=== PATIENT | female | born 1955 | race Caucasian/White ===

== ENCOUNTER 2016-11-18 17:39 | Inpatient (IN) | payer BC ==
[~2016-11-18] VITALS: Ht 167.6 cm; Wt 64.5 kg
[2016-11-18] MEDS ORDERED: MORPHINE SULFATE 8 MG/ML INJ ONE (17:45)
[2016-11-18] MEDS ORDERED: ceFAZolin 2 GM PREMIX 50 ML ONE (17:45)
[2016-11-18] MEDS ORDERED: DIPHTH/TETANUS/ACEL PERTUSSIS (BOOSTER) 0.5 ML VIAL/PFS IM ONE ×2 (17:45→18:36)
[2016-11-18] MEDS ORDERED: ADENOSINE IV SOLN 3 MG/ML 2 ML VIAL ONE ×2 (17:49→17:52)
[2016-11-18] MEDS ORDERED: ONDANSETRON HCL 4 MG/2 ML VIAL ONE (18:01)
[2016-11-18 18:09] LABS: I-STAT POTASSIUM 4.2 MMOL/L (3.5-4.9)
[2016-11-18 18:14] LABS: BASOPHIL % 0.4 % (0.0-2.0); EOSINOPHIL # 0.1 TH/MM3 (0-0.4); EOSINOPHIL % 1.9 % (0.0-4.0); HEMATOCRIT 34.5 % (35.0-46.0); HEMO FLAGS DIFF FINAL; LYMPH % 30.9 % (9.0-44.0); LYMPHOCYTE # 1.6 TH/MM3 (1.0-4.8); MEAN CELL VOLUME 98.3 FL (80.0-100.0); MEAN CORPUSCULAR HEMOGLOBIN 33.1 PG (27.0-34.0); MEAN CORPUSCULAR HGB CONC 33.7 % (32.0-36.0); MONO % 10.5 % (0.0-8.0); NEUT % 56.3 % (16.0-70.0); PLATELET COUNT 156 TH/MM3 (150-450); RED BLOOD COUNT 3.51 MIL/MM3 (4.00-5.30); RED CELL DISTRIBUTION WIDTH 12.4 % (11.6-17.2); WHITE BLOOD COUNT 5.3 TH/MM3 (4.0-11.0)
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
[2016-11-18] MEDS ORDERED: IOHEXOL 350 MG/ML 10 ML VIAL (for RAD DIAG) IV ONE (18:21)
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
[2016-11-18 18:28] LABS: APTT (PATIENT) 21.8 SEC (24.3-30.1); PROTHROMBIN TIME - PATIENT 11.4 SEC (9.8-11.6)
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
[2016-11-18] MEDS ORDERED: ceFAZolin 2 GM PREMIX 50 ML IV STA (18:36)
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
[2016-11-18] MEDS ORDERED: ONDANSETRON HCL 4 MG/2 ML VIAL IV PRN (18:45)
[2016-11-18] MEDS ORDERED: SODIUM CHLORIDE 0.9% FLUSH 5 ML FLUSH IV FLUSH PRN ×2 (18:45→22:45)
[2016-11-18] MEDS: LACTULOSE SYRUP 20 GM/30 ML CUP PO SCH (18:45)
[2016-11-18] MEDS ORDERED: CHLORHEXIDINE GLUCONATE 2 % 1 PACK (2 CLOTHS) TOP PRN ×2 (18:45→22:45)
[2016-11-18] MEDS ORDERED: MISCELLANEOUS NURSING INFORMATION XX SCH ×2 (18:45→22:45)
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
[2016-11-18] MEDS: SODIUM CHLOR 0.9% 1000 ML INJ 1,000 ML IV SCH (19:24)
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
--- NOTE | 2016-11-18 19:41 | RADRPT ---
EXAM DATE/TIME: 11/18/2016 19:08 [facility] COMPARISON: No previous studies available for comparison. INDICATIONS : Trauma, right lateral knee pain. RADIATION DOSE: 7.29 CTDIvol (mGy) MEDICAL HISTORY : Non-responsive. SURGICAL HISTORY : Non-responsive. ENCOUNTER: Initial ACUITY: 1 day PAIN SCALE: Non-responsive LOCATION: Right knee TECHNIQUE: Volumetric scanning of the knee was performed. Using automated exposure control and adjustment of th e mA and/or kV according to patient size, radiation dose was kept as low as reasonably achievable to obtain optimal diagnostic quality images. FINDINGS: BONES: Lateral tibial plateau fracture with slight comminution. There is depression proximate 5 mm. Fracture extends into the midline involves the tibial spines. There is also fracture of the mid tibial shaft with displacement and comminution. The patella and distal femur appear intact. The fibula is intact. JOINTS: Lipohemarthrosis. SOFT TISSUES: Extensive soft tissue swelling CONCLUSION: 1. Lateral tibial plateau fracture, comminuted, extending into the midline and involves the tibial sp mc. 2. Fracture of the proximal shaft of the tibia with displacement and comminution. 3. Distal femur and patella are intact. Pratik Valdovinos MD on November 18, 2016 at 19:37 Board Certified Radiologist. This report was verified electronically.
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
[2016-11-18] MEDS ORDERED: SODIUM CHLORIDE 0.9% FLUSH 5 ML FLUSH IV FLUSH SCH (21:00)
[2016-11-18 22:00] VITALS: BP 98/51; PULSE 70; PULSE 93; RESP 19; TEMP 98.1; O2SAT 94
[2016-11-18] MEDS ORDERED: SENNOSIDES 8.6 MG TAB PO PRN (22:45)
[2016-11-18] MEDS ORDERED: SODIUM CHLOR 0.9% 1000 ML INJ 1,000 ML IV ONE (22:45)
[2016-11-18] MEDS ORDERED: RESP: ALBUTEROL 2.5 MG/IPRATROPIUM 0.5 MG NEB (PRN) INH (22:45)
[2016-11-18 23:19] LABS: HEMATOCRIT 26.2 % (35.0-46.0); MEAN CELL VOLUME 99.5 FL (80.0-100.0); MEAN CORPUSCULAR HEMOGLOBIN 33.8 PG (27.0-34.0); PLATELET COUNT 132 TH/MM3 (150-450); RED BLOOD COUNT 2.63 MIL/MM3 (4.00-5.30); RED CELL DISTRIBUTION WIDTH 12.5 % (11.6-17.2); REVIEW FLAG FINAL; WHITE BLOOD COUNT 9.8 TH/MM3 (4.0-11.0)
[2016-11-18 23:47] LABS: ANION GAP 10 MEQ/L (5-15); BICARBONATE 21.8 MEQ/L (21.0-32.0); BLOOD UREA NITROGEN 17 MG/DL (7-18); CHLORIDE 109 MEQ/L (98-107); GLOMERULAR FILTRATION RATE 68 ML/MIN (>89); MAGNESIUM 1.8 MG/DL (1.5-2.5); POTASSIUM 4.2 MEQ/L (3.5-5.1); SODIUM (NA) 141 MEQ/L (136-145)
[2016-11-18 23:58] LABS: CALCIUM-PROTEIN CORRECTED 8.2 MG/DL (8.5-10.1); CREATINE KINASE 248 U/L (26-192)
[2016-11-19] VITALS (18 sets, daily range): BP systolic 97–139; BP diastolic 53–71; PULSE 66–88; RESP 11–23; TEMP 98.1–99.3; O2SAT 97–100
[2016-11-19 00:31] LABS: CKMB 4.1 NG/ML (0.5-3.6)
--- NOTE | 2016-11-19 00:58 | PD.ORT.PN ---
Subjective Subjective Remarks Right shoulder and right knee and tibia pain Objective Vitals Vital Signs Date Time Temp Pulse Resp B/P Pulse Ox O2 Delivery O2 Flow Rate FiO2 11/19/16 00:36 100 Nasal Cannula 4.00 Result Diagram: 11/18/16 2306 11/18/16 2306 Other Results Laboratory Tests Test 11/18/16 17:45 Prothrombin Time 11.4 SEC (9.8-11.6) Prothromb Time International 1.0 RATIO Ratio Imaging Last 24 hours Impressions Pelvis X-Ray 11/18/161748 Signed Impressions: Service Date/Time: Friday, November 18, 2016 17:51 - CONCLUSION: No acute fracture. Pratik Valdovinos MD Maxillofacial CT 11/18/161748 Signed Impressions: Service Date/Time: Friday, November 18, 2016 18:01 - CONCLUSION: 1. Subtle nondisplaced nasal bone fracture. 2. No other facial bone fractures identified. Humberto Christensen MD Head CT 11/18/161748 Signed Impressions: Service Date/Time: Friday, November 18, 2016 18:01 - CONCLUSION: 1. Bilateral scattered subarachnoid hemorrhage. No midline shift or mass effect. 2. Right scalp contusion 3. Bilateral nasal fractures slightly greater on the right. Pratik Valdovinos MD Chest X-Ray 11/18/161748 Signed Impressions: Service Date/Time: Friday, November 18, 2016 17:51 - CONCLUSION: 1. Small right apical pneumothorax. 2. Right proximal humeral fracture. Humberto Christensen MD Chest CT 11/18/161748 Signed Impressions: Service Date/Time: Friday, November 18, 2016 18:08 - CONCLUSION: 1. Small right pneumothorax. 2. Comminuted fracture of the right proximal humerus. 3. Subtle nondisplaced right lateral rib fracture. Humberto Christensen MD Cervical Spine CT 11/18/161748 Signed Impressions: Service Date/Time: Friday, November 18, 2016 18:01 - CONCLUSION: 1. No fracture or subluxation. 2. Upper rib fractures and right apical pneumothorax. Pratik Valdovinos MD Abdomen/Pelvis CT 11/18/161748 Signed Impressions: Service Date/Time: Friday, November 18, 2016 18:08 - CONCLUSION: 1. Tiny right basilar pneumothorax. 2. Low attenuation lesion involving the right lobe of the liver which may represent cysts. 3. Subtle nondisplaced right lower lateral rib fracture. Humberto Christensen MD Objective Remarks full consult dictated Assessment & Plan Problem List: (1) Fracture of surgical neck of right humerus (2) Closed fracture of right tibial plateau (3) Fracture of tibial shaft, right, closed Assessment and Plan Her condition was discussed with the patient and her The recommendation is observation at this due to her cardiac and intracranial pathology Monitor in ICU Ángel Osei MD Nov 19, 2016 00:58
[2016-11-19] MEDS: CHLORHEXIDINE GLUCONATE 2 % 1 PACK (2 CLOTHS) TOP SCH (03:09)
[2016-11-19] MEDS ORDERED: CHLORHEXIDINE GLUCONATE 2 % 1 PACK (2 CLOTHS) TOP SCH (04:00)
[2016-11-19 04:45] LABS: AUTOMATED NEUTROPHIL # 6.5 TH/MM3 (1.8-7.7); BASOPHIL % 0.1 % (0.0-2.0); HEMATOCRIT 27.7 % (35.0-46.0); LYMPH % 5.7 % (9.0-44.0); LYMPHOCYTE # 0.4 TH/MM3 (1.0-4.8); MEAN CELL VOLUME 94.5 FL (80.0-100.0); MEAN CORPUSCULAR HEMOGLOBIN 32.8 PG (27.0-34.0); MEAN CORPUSCULAR HGB CONC 34.7 % (32.0-36.0); MONO % 10.2 % (0.0-8.0); PLATELET COUNT 98 TH/MM3 (150-450); RED BLOOD COUNT 2.93 MIL/MM3 (4.00-5.30); RED CELL DISTRIBUTION WIDTH 15.2 % (11.6-17.2); WHITE BLOOD COUNT 7.7 TH/MM3 (4.0-11.0)
[2016-11-19 04:56] LABS: HEMO FLAGS AUTO DIFF
[2016-11-19 05:40] LABS: BICARBONATE 22.7 MEQ/L (21.0-32.0); MAGNESIUM 1.8 MG/DL (1.5-2.5); POTASSIUM 4.1 MEQ/L (3.5-5.1)
[2016-11-19 06:03] LABS: CALCIUM-PROTEIN CORRECTED 8.2 MG/DL (8.5-10.1)
[2016-11-19 06:06] LABS: PLATELET ESTIMATE SMEAR LOW (NORMAL); PLATELET MORPHOLOGY NORMAL (NORMAL); SCAN/DIFF AUTO DIFF CONFIRMED
--- NOTE | 2016-11-19 06:15 | RADRPT ---
EXAM DATE/TIME: 11/19/2016 04:48 [facility] COMPARISON: CHEST SINGLE AP, November 18, 2016, 17:51. INDICATIONS : Shortness of breath. MEDICAL HISTORY : None. SURGICAL HISTORY : None. ENCOUNTER: Subsequent ACUITY: 2 days PAIN SCORE: Non-responsive. LOCATION: Bilateral chest FINDINGS: A single view of the chest demonstrates small right-sided apical pneumothorax not significantly quinteros ed since November 18. Minimal basilar atelectasis. Heart size enlarged. CONCLUSION: 1. Small right apical pneumothorax not significantly changed over the last day. Proximal right justin l fracture. Gilles Estrada MD on November 19, 2016 at 6:13 Board Certified Radiologist. This report was verified electronically.
[2016-11-19] MEDS: SODIUM CHLOR 0.9% 1000 ML INJ 1,000 ML IV SCH ×2 (06:24→17:33)
[2016-11-19] MEDS: LACTULOSE SYRUP 20 GM/30 ML CUP PO SCH (08:30)
[2016-11-19] MEDS: SODIUM CHLORIDE 0.9% FLUSH 5 ML FLUSH IV FLUSH SCH ×2 (08:30→20:23)
[2016-11-19] MEDS ORDERED: ADENOSINE IV SOLN 3 MG/ML 2 ML VIAL ONE ×2 (08:57→09:07)
[2016-11-19] MEDS ORDERED: PANTOPRAZOLE SODIUM 40 MG VIAL IV SCH (09:00)
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
[2016-11-19] MEDS: METOPROLOL TARTRATE 5 MG/5 ML VIAL IV PUSH SCH ×2 (09:34→15:30)
[2016-11-19] MEDS: DOCUSATE SODIUM 100 MG CAP PO SCH ×2 (09:35→20:23)
[2016-11-19] MEDS: MAGNESIUM SULFATE 1 GM PREMIX 100 ML IV SCH ×2 (09:35→10:05)
[2016-11-19] MEDS: DILTIAZEM HCL 30 MG TAB PO SCH ×2 (11:02→17:32)
[2016-11-19] MEDS ORDERED: ADENOSINE IV SOLN 3 MG/ML 2 ML VIAL IV PUSH ONE ×2 (11:45)
--- NOTE | 2016-11-19 12:26 | EKG ---
Date Performed: 11/19/2016 Time Performed: 08:53:30 PTAGE: 89 years EKG: Probable supraventricular tachycardia. Incomplete RBBB Possible anterior infarct - age unde termined Inferior/lateral ST-T changes are nonspecific Abnormal ECG NO PREVIOUS TRACING DOCTOR: Abhijeet Olson Interpretating Date/Time 11/19/2016 12:24:55
[2016-11-19] MEDS: ONDANSETRON HCL 4 MG/2 ML VIAL IV PRN (15:56)
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
[2016-11-19] MEDS ORDERED: oxyCODONE/ACETAMINOPHEN 5 MG/325 MG TAB PO PRN (19:15)
[2016-11-19] MEDS: FAMOTIDINE 20 MG TAB PO SCH (20:22)
[2016-11-19] MEDS: ACETAMINOPHEN 1000 MG/100 ML VIAL IV SCH (20:22)
[2016-11-20] VITALS (15 sets, daily range): BP systolic 105–148; BP diastolic 58–90; PULSE 67–86; RESP 12–26; TEMP 98.6–98.8; O2SAT 96–99
[2016-11-20] MEDS: DILTIAZEM HCL 30 MG TAB PO SCH ×2 (00:09→05:50)
[2016-11-20] MEDS: MORPHINE SULFATE 4 MG/ML INJ IV PUSH PRN ×7 (00:14→23:50)
[2016-11-20] MEDS: ACETAMINOPHEN 1000 MG/100 ML VIAL IV SCH ×3 (02:17→14:49)
[2016-11-20] MEDS: CHLORHEXIDINE GLUCONATE 2 % 1 PACK (2 CLOTHS) TOP SCH (03:15)
[2016-11-20 04:15] LABS: AUTOMATED NEUTROPHIL # 3.1 TH/MM3 (1.8-7.7); BASOPHIL % 0.3 % (0.0-2.0); EOSINOPHIL % 0.6 % (0.0-4.0); HEMATOCRIT 21.1 % (35.0-46.0); LYMPH % 17.4 % (9.0-44.0); LYMPHOCYTE # 0.8 TH/MM3 (1.0-4.8); MEAN CELL VOLUME 94.8 FL (80.0-100.0); MEAN CORPUSCULAR HEMOGLOBIN 31.8 PG (27.0-34.0); MEAN CORPUSCULAR HGB CONC 33.5 % (32.0-36.0); MONO % 15.7 % (0.0-8.0); PLATELET COUNT 74 TH/MM3 (150-450); RED BLOOD COUNT 2.23 MIL/MM3 (4.00-5.30); RED CELL DISTRIBUTION WIDTH 14.8 % (11.6-17.2); WHITE BLOOD COUNT 4.6 TH/MM3 (4.0-11.0)
[2016-11-20 04:23] LABS: APTT (PATIENT) 26.4 SEC (24.3-30.1); PROTHROMBIN TIME - PATIENT 10.7 SEC (9.8-11.6)
[2016-11-20 04:28] LABS: HEMO FLAGS AUTO DIFF
[2016-11-20 04:38] LABS: BICARBONATE 24.2 MEQ/L (21.0-32.0); CALCIUM-PROTEIN CORRECTED 8.5 MG/DL (8.5-10.1); MAGNESIUM 2.5 MG/DL (1.5-2.5); POTASSIUM 3.6 MEQ/L (3.5-5.1); TOTAL BILIRUBIN ADULT 0.4 MG/DL (0.2-1.0)
[2016-11-20] MEDS ORDERED: POTASSIUM PHOSPHATE MONOBASIC 500 MG TAB PO/TUBE PRN (04:45)
[2016-11-20] MEDS ORDERED: POTASSIUM CHLOR 40 MEQ PREMIX 100 ML IV PRN ×2 (04:45)
[2016-11-20] MEDS ORDERED: SODIUM CHLOR 0.9% 250 ML INJ 250 ML IV ONE (04:45)
[2016-11-20] MEDS ORDERED: MAGNESIUM OXIDE 400 MG TAB PO PRN (04:45)
[2016-11-20] MEDS ORDERED: POTASSIUM CHLOR 20 MEQ PREMIX 100 ML IV PRN ×2 (04:45)
[2016-11-20] MEDS ORDERED: SODIUM PHOSPHATE INJ 30 MMOL in SODIUM CHLOR 0.9% 250 ML INJ 240 ML IV PRN (04:45)
[2016-11-20] MEDS ORDERED: POTASSIUM PHOSPHATE MONOBASIC 500 MG TAB PO PRN (04:45)
[2016-11-20] MEDS ORDERED: MAGNESIUM SULFATE INJ 2 GM in SODIUM CHLORIDE 0.9% INJ 96 ML IV PRN (04:45)
[2016-11-20] MEDS ORDERED: MAGNESIUM SULFATE INJ 4 GM in SODIUM CHLORIDE 0.9% INJ 92 ML IV PRN (04:45)
--- NOTE | 2016-11-20 05:19 | RADRPT ---
EXAM DATE/TIME: 11/20/2016 04:15 [facility] COMPARISON: CHEST SINGLE AP, November 19, 2016, 4:48. INDICATIONS : Shortness of breath. MEDICAL HISTORY : None. SURGICAL HISTORY : None. ENCOUNTER: Subsequent ACUITY: 3 days PAIN SCORE: Non-responsive. LOCATION: Bilateral chest FINDINGS: Cardiomegaly and left lower lobe consolidation. Right second, third posterior rib fractures are seen with mild right apical pleural thickening. Right proximal humerus fracture deformity. CONCLUSION: Increased left lower lobe airspace disease. Lion Vidal MD on November 20, 2016 at 5:17 Board Certified Radiologist. This report was verified electronically.
[2016-11-20] MEDS: POTASSIUM PHOSPHATE INJ 30 MMOL in SODIUM CHLOR 0.9% 250 ML INJ 250 ML IV PRN (05:34)
[2016-11-20] MEDS: SODIUM CHLOR 0.9% 1000 ML INJ 1,000 ML IV SCH ×2 (05:51→17:42)
[2016-11-20] MEDS: ONDANSETRON HCL 4 MG/2 ML VIAL IV PRN ×3 (06:29→23:18)
[2016-11-20 06:53] LABS: PLATELET ESTIMATE SMEAR LOW (NORMAL); PLATELET MORPHOLOGY NORMAL (NORMAL); SCAN/DIFF AUTO DIFF CONFIRMED
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
[2016-11-20] MEDS: SODIUM CHLORIDE 0.9% FLUSH 5 ML FLUSH IV FLUSH SCH ×2 (08:50→20:42)
[2016-11-20] MEDS: DILTIAZEM-CD 180 MG CAP ER PO SCH (08:50)
[2016-11-20] MEDS: LACTULOSE SYRUP 20 GM/30 ML CUP PO SCH (08:51)
[2016-11-20] MEDS: DOCUSATE SODIUM 50 MG/SENNA 8.6 MG TAB PO SCH ×2 (08:51→20:42)
[2016-11-20] MEDS: FAMOTIDINE 20 MG TAB PO SCH ×2 (08:51→20:42)
[2016-11-20] MEDS: POLYETHYLENE GLYCOL 17 GM PKG PO SCH (08:51)
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
[2016-11-20] MEDS ORDERED: PNEUMOCOCCAL POLYVALENT INJ 25 MCG/0.5 ML SYR IM ONE (10:00)
[2016-11-20] MEDS ORDERED: INFLUENZA VIRUS VACCINE (QUADRIVALENT) 0.5 ML SYR IM ONE (10:00)
--- NOTE | 2016-11-20 12:41 | EC ---
Study Study Date:11/19/2016 STUDY CONCLUSIONS SUMMARY LEFT VENTRICLE: The cavity size was normal. Wall thickness was normal. Systolic function was normal. The estimated ejection fraction was in the range of 55% to 60%. Wall motion was normal; there were no regional wall motion abnormalities. If LV function is below 40, please consider prescribing an ACEI or ARB or document rationale for non-use. PROCEDURE DATA STUDY STATUS: Elective. Procedure: Transthoracic echocardiography. Image quality was suboptimal. Scanning was performed from the parasternal, apical, and subcostal acoustic windows. Study completion: The patient tolerated the procedure well. Transthoracic echocardiography. M-mode, complete 2D, complete spectral Doppler, and color Doppler. Patient status: Inpatient. CARDIAC ANATOMY LEFT VENTRICLE: The cavity size was normal. Wall thickness was normal. Systolic function was normal. The estimated ejection fraction was in the range of 55% to 60%. Wall motion was normal; there were no regional wall motion abnormalities. AORTIC VALVE: Poorly visualized. Normal thickness leaflets. Doppler: Transvalvular velocity was within the normal range. There was no stenosis. No regurgitation. Mean gradient: 6mm Hg (S). Peak gradient: 12mm Hg (S). AORTA: Aortic root: The aortic root was normal in size. MITRAL VALVE: Poorly visualized. Structurally normal valve. Doppler: Transvalvular velocity was within the normal range. There was no evidence for stenosis. Trace regurgitation. LEFT ATRIUM: The atrium was normal in size. RIGHT VENTRICLE: Poorly visualized. The cavity size was normal. Wall thickness was normal. PULMONIC VALVE: Poorly visualized. Doppler: Transvalvular velocity was within the normal range. There was no evidence for stenosis. No regurgitation. TRICUSPID VALVE: Poorly visualized. Doppler: Transvalvular velocity was within the normal range. Trace regurgitation. PULMONARY ARTERY: The main pulmonary artery was normal-sized. RIGHT ATRIUM: Poorly visualized. PERICARDIUM: There was no pericardial effusion. SYSTEMIC VEINS: Inferior vena cava: The vessel was normal in size. BASIC MEASUREMENTS ADULT Normal Left ventricle LV internal dimension, ED, chordal level, *40.1 mm 43-52 PLAX LV internal dimension, ES, chordal level, 25.6 mm 23-38 PLAX Fractional shortening, chordal level, PLAX 36 % >29 LV posterior wall thickness, ED 6.48 mm IVS/LVPW ratio, ED 0.96 <1.3 Ventricular septum Septal thickness, ED 6.19 mm Aortic valve Leaflet separation 17 mm 15-26 Aorta Root diameter, ED 28 mm Left atrium Anterior-posterior dimension 18 mm Right ventricle RV internal dimension, ED, PLAX 27 mm 19-38 BASIC MEASUREMENTS ADULT Normal Aortic valve Leaflet separation 17 mm 15-26 DOPPLER MEASUREMENTS ADULT Normal Aortic valve Peak velocity, S 175 cm/s Mean velocity, S 116 cm/s VTI, S 30.4 cm Mean gradient, S 6 mm Hg Peak gradient, S 12 mm Hg Tricuspid valve Regurgitant peak velocity 301 cm/s Peak RV-RA gradient, S 36 mm Hg Maximal regurgitant velocity 301 cm/s Right ventricle RV pressure, S *46 mm Hg <30 Pulmonic valve Peak velocity, S 54.9 cm/s LEGEND: Mean values are shown as u=mean value. Asterisk (*) gilliam values outside specified normal range. Prepared and signed by Abhijeet Olson [id number]
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
--- NOTE | 2016-11-20 15:14 | RADRPT ---
EXAM DATE/TIME: 11/20/2016 12:51 [facility] COMPARISON: CT BRAIN W/O CONTRAST, November 18, 2016, 18:01. CT KNEE RIGHT W/O CONTRAST, November 18, 2016, 19:08. INDICATIONS : Evaluate subarachnoid hemorrhage. RADIATION DOSE: 56.35 CTDIvol (mGy) MEDICAL HISTORY : Non-responsive. SURGICAL HISTORY : Non-responsive. ENCOUNTER: Initial ACUITY: 1 day PAIN SCALE: Non-responsive LOCATION: cranial TECHNIQUE: Multiple contiguous axial images were obtained of the head. Using automated exposure control and adj ustment of the mA and/or kV according to patient size, radiation dose was kept as low as reasonably a chievable to obtain optimal diagnostic quality images. FINDINGS: The examination demonstrates scattered, very subtle areas of subarachnoid hemorrhage over the high co nvexities. These have undergone the expected evolution. No new areas of hemorrhage are seen. The ventricles are normal in size and configuration. No significant subdural hemorrhage is evident. N o findings to indicate acute cortical infarction are identified. The appearance of the posterior jarrod a is unremarkable. The osseous structures of the skull demonstrate a fracture of the nasal bone. The calvarium appears i ntact.. There is a large hematoma within the scalp along the right frontal region. CONCLUSION: 1. Scattered areas of subarachnoid hemorrhage which are undergoing expected evolution. 2. Large hematoma within the scalp. 3. Fracture of the nasal bone. Gerald Gomez MD on November 20, 2016 at 15:09 Board Certified Radiologist. This report was verified electronically.
[2016-11-20] MEDS ORDERED: LIDOCAINE 1%/EPINEPHrine 1:100,000 SOLN 30 ML VIAL ONE (16:06)
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
[2016-11-20] MEDS: ACETAMINOPHEN 325 MG TAB PO PRN (23:28)
[2016-11-21] VITALS (11 sets, daily range): BP systolic 117–173; BP diastolic 56–80; PULSE 72–94; RESP 13–24; TEMP 97.5–99.3; O2SAT 94–100
[2016-11-21] MEDS: CHLORHEXIDINE GLUCONATE 2 % 1 PACK (2 CLOTHS) TOP SCH (04:00)
[2016-11-21] MEDS: MORPHINE SULFATE 4 MG/ML INJ IV PUSH PRN ×2 (04:31→08:57)
[2016-11-21 04:37] LABS: AUTOMATED NEUTROPHIL # 4.9 TH/MM3 (1.8-7.7); BASOPHIL % 0.2 % (0.0-2.0); EOSINOPHIL % 0.4 % (0.0-4.0); HEMATOCRIT 24.3 % (35.0-46.0); LYMPH % 9.1 % (9.0-44.0); LYMPHOCYTE # 0.6 TH/MM3 (1.0-4.8); MEAN CELL VOLUME 93.9 FL (80.0-100.0); MEAN CORPUSCULAR HEMOGLOBIN 32.4 PG (27.0-34.0); MEAN CORPUSCULAR HGB CONC 34.5 % (32.0-36.0); MONO % 14.2 % (0.0-8.0); NEUT % 76.1 % (16.0-70.0); PLATELET COUNT 80 TH/MM3 (150-450); RED BLOOD COUNT 2.59 MIL/MM3 (4.00-5.30); RED CELL DISTRIBUTION WIDTH 14.6 % (11.6-17.2); WHITE BLOOD COUNT 6.4 TH/MM3 (4.0-11.0)
[2016-11-21 04:38] LABS: HEMO FLAGS AUTO DIFF
[2016-11-21 05:00] LABS: ALT (GPT) 20 U/L (10-53); ANION GAP 10 MEQ/L (5-15); AST (GOT) 18 U/L (15-37); BICARBONATE 24.8 MEQ/L (21.0-32.0); BLOOD UREA NITROGEN 4 MG/DL (7-18); CHLORIDE 103 MEQ/L (98-107); GLOMERULAR FILTRATION RATE 188 ML/MIN (>89); MAGNESIUM 2.2 MG/DL (1.5-2.5); POTASSIUM 3.5 MEQ/L (3.5-5.1); SODIUM (NA) 138 MEQ/L (136-145)
[2016-11-21 05:03] LABS: ALKALINE PHOSPHATASE 28 U/L (45-117); TOTAL BILIRUBIN ADULT 0.5 MG/DL (0.2-1.0)
[2016-11-21] MEDS: ONDANSETRON HCL 4 MG/2 ML VIAL IV PRN ×2 (05:23→13:51)
[2016-11-21] MEDS: SODIUM CHLOR 0.9% 1000 ML INJ 1,000 ML IV SCH (05:23)
[2016-11-21] MEDS: POTASSIUM PHOSPHATE INJ 30 MMOL in SODIUM CHLOR 0.9% 250 ML INJ 250 ML IV PRN (05:31)
--- NOTE | 2016-11-21 05:55 | RADRPT ---
EXAM DATE/TIME: 11/21/2016 04:05 [place] COMPARISON: CHEST SINGLE AP, November 20, 2016, 4:15. INDICATIONS : Shortness of breath. MEDICAL HISTORY : None. SURGICAL HISTORY : None. ENCOUNTER: Subsequent ACUITY: 4 - 6 days PAIN SCORE: Non-responsive. LOCATION: Bilateral chest FINDINGS: Cardiomegaly, hazy opacity overlying both right and left lung lombardo suggest layering effusions and c onsolidation. Persistent left lower lobe consolidation. Osseous structures are intact. CONCLUSION: Worsening appearance of the chest. Lion Vidal MD on November 21, 2016 at 5:53 Board Certified Radiologist. This report was verified electronically.
[2016-11-21 07:02] LABS: PLATELET ESTIMATE SMEAR LOW (NORMAL)
[2016-11-21 07:03] LABS: PLATELET MORPHOLOGY NORMAL (NORMAL); SCAN/DIFF AUTO DIFF CONFIRMED
[2016-11-21] MEDS: SODIUM CHLORIDE 0.9% FLUSH 5 ML FLUSH IV FLUSH SCH (07:43)
[2016-11-21] MEDS: FAMOTIDINE 20 MG TAB PO SCH (08:01)
[2016-11-21] MEDS: DILTIAZEM-CD 180 MG CAP ER PO SCH (08:01)
[2016-11-21] MEDS: LACTULOSE SYRUP 20 GM/30 ML CUP PO SCH (08:04)
[2016-11-21] MEDS: POLYETHYLENE GLYCOL 17 GM PKG PO SCH (08:04)
[2016-11-21] MEDS: DOCUSATE SODIUM 50 MG/SENNA 8.6 MG TAB PO SCH (08:05)
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
[2016-11-21] MEDS: ACETAMINOPHEN 325 MG TAB PO PRN (09:04)
[2016-11-21] MEDS ORDERED: LACTATED RINGER'S 1000 ML INJ 2,000 ML IV ONE (10:54)
[2016-11-21] MEDS ORDERED: ONDANSETRON HCL 4 MG/2 ML VIAL IV PUSH ONE (10:54)
[2016-11-21] MEDS ORDERED: PHENYLEPH/NS 1000 MCG/10 ML SYR IV ONE (10:54)
[2016-11-21] MEDS ORDERED: NEOSTIGMINE 3 MG/3 ML SYR IV ONE (10:54)
[2016-11-21] MEDS ORDERED: PROPOFOL 200 MG/20 ML AMP IV ONE (10:54)
[2016-11-21] MEDS ORDERED: HALOPERIDOL LACTATE 5 MG/ML AMP IV PUSH PRN (13:45)
[2016-11-21] MEDS: ACETAMIN 325 MG/BUTALBITAL 50 MG/CAFFEINE 40 MG TAB PO PRN (15:10)
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
--- NOTE | 2016-11-21 16:27 | HHI.PR ---
Subjective Subjective Notes Pain controlled. To OR today with Dr. Huerta for surgery Objective Vitals/I&O Vital Signs Date Time Temp Pulse Resp B/P Pulse Ox O2 Delivery O2 Flow Rate FiO2 11/21/16 14:00 77 11/21/16 12:00 99.3 22 143/80 99 11/21/16 07:55 Nasal Cannula 2.00 Labs Laboratory Tests Test 11/21/16 11/21/16 04:12 09:00 White Blood Count 6.4 Red Blood Count 2.59 Hemoglobin 8.4 Hematocrit 24.3 Mean Corpuscular Volume 93.9 Mean Corpuscular Hemoglobin 32.4 Mean Corpuscular Hemoglobin 34.5 Concent Red Cell Distribution Width 14.6 Platelet Count 80 Mean Platelet Volume 7.6 Neutrophils (%) (Auto) 76.1 Lymphocytes (%) (Auto) 9.1 Monocytes (%) (Auto) 14.2 Eosinophils (%) (Auto) 0.4 Basophils (%) (Auto) 0.2 Neutrophils # (Auto) 4.9 Lymphocytes # (Auto) 0.6 Monocytes # (Auto) 0.9 Eosinophils # (Auto) 0.0 Basophils # (Auto) 0.0 CBC Comment AUTO DIFF Differential Comment AUTO DIFF CONFIRMED Platelet Estimate LOW Platelet Morphology Comment NORMAL Sodium Level 138 Potassium Level 3.5 Chloride Level 103 Carbon Dioxide Level 24.8 Anion Gap 10 Blood Urea Nitrogen 4 Creatinine 0.35 Estimat Glomerular Filtration 188 Rate Random Glucose 94 Calcium Level 7.8 Phosphorus Level 2.3 Magnesium Level 2.2 Total Bilirubin 0.5 Aspartate Amino Transf 18 (AST/SGOT) Alanine Aminotransferase 20 (ALT/SGPT) Alkaline Phosphatase 28 Total Protein 5.3 Albumin 2.4 Blood Type O POSITIVE Antibody Screen NEGATIVE Crossmatch Leukocyte-Reduced Red Blood Cells Blood Bank Comment Radiology Last Impressions Chest X-Ray 11/21/16 0600 Signed Impressions: Service Date/Time: Monday, November 21, 2016 04:05 - CONCLUSION: Worsening appearance of the chest. Lion Vidal MD Head CT 11/20/16 0000 Signed Impressions: Service Date/Time: Sunday, November 20, 2016 12:51 - CONCLUSION: 1. Scattered areas of subarachnoid hemorrhage which are undergoing expected evolution. 2. Large hematoma within the scalp. 3. Fracture of the nasal bone. Gerald Gomez MD Pelvis X-Ray 11/18/16 1749 Signed Impressions: Service Date/Time: Friday, November 18, 2016 17:51 - CONCLUSION: No acute fracture. Pratik Valdovinos MD Maxillofacial CT 11/18/161748 Signed Impressions: Service Date/Time: Friday, November 18, 2016 18:01 - CONCLUSION: 1. Subtle nondisplaced nasal bone fracture. 2. No other facial bone fractures identified. Humberto Christensen MD Chest CT 11/18/161748 Signed Impressions: Service Date/Time: Friday, November 18, 2016 18:08 - CONCLUSION: 1. Small right pneumothorax. 2. Comminuted fracture of the right proximal humerus. 3. Subtle nondisplaced right lateral rib fracture. Humberto Christensen MD Cervical Spine CT 11/18/161748 Signed Impressions: Service Date/Time: Friday, November 18, 2016 18:01 - CONCLUSION: 1. No fracture or subluxation. 2. Upper rib fractures and right apical pneumothorax. Pratik Valdovinos MD Abdomen/Pelvis CT 11/18/161748 Signed Impressions: Service Date/Time: Friday, November 18, 2016 18:08 - CONCLUSION: 1. Tiny right basilar pneumothorax. 2. Low attenuation lesion involving the right lobe of the liver which may represent cysts. 3. Subtle nondisplaced right lower lateral rib fracture. Humberto Christensen MD Tibia/Fibula X-Ray 11/18/16 Signed Impressions: Service Date/Time: Friday, November 18, 2016 17:51 - CONCLUSION: 1. Lateral tibial plateau fracture. 2. Fracture of the proximal tibial shaft with mild displacement. 3. Distal fibular fracture with overlapping fragments and slight comminution. Pratik Valdovinos MD Shoulder X-Ray 11/18/16 0000 Signed Impressions: Service Date/Time: Friday, November 18, 2016 17:51 - CONCLUSION: 1. Right proximal humeral fracture. 2. Small right apical pneumothorax. Humberto Christensen MD Lower Extremity CT 11/18/16 0000 Signed Impressions: Service Date/Time: Friday, November 18, 2016 19:08 - CONCLUSION: 1. Lateral tibial plateau fracture, comminuted, extending into the midline and involves the tibial spines. 2. Fracture of the proximal shaft of the tibia with displacement and comminution. 3. Distal femur and patella are intact. Pratik Valdovinos MD Elbow X-Ray 11/18/16 0000 Signed Impressions: Service Date/Time: Friday, November 18, 2016 17:51 - CONCLUSION: No acute fracture. Pratik Valdovinos MD Narrative Exam GENERAL: 61-year-old well-nourished, well developed female lying in bed. SKIN: Warm and dry. Dressing to right forehead C/D/I. HEAD: Normocephalic. Periorbital edema and ecchymosis. ENT: No nasal bleeding or discharge. Mucous membranes pink and moist. NECK: Trachea midline. No JVD. CARDIOVASCULAR: Regular rate and rhythm. RESPIRATORY: No accessory muscle use. Lungs clear and diminished to auscultation. Breath sounds equal bilaterally. GASTROINTESTINAL: Abdomen soft, non-tender, nondistended. + BS. MUSCULOSKELETAL: Extremities without cyanosis, facial edema. LEFT hand dressing c/d/i. NEUROLOGICAL: Awake and alert. Normal speech. A/P Assessment and Plan INJURIES: Bilateral scattered SAH Bilateral nasal fractures (non-op) RIGHT rib fracture Tiny right pneumothorax RIGHT proximal humerus fracture RIGHT ankle fx Right tibia fx Right scalp lac Diet: Regular, tolerating. Nothing by mouth today for surgery. Pulmonary: IS, encourage patient use. Pain: Roxicodone. IV Morphine. Pain controlled. Activity: OOB. PT and OT ordered. (NWB RUE, NWB RLE) GI: Pepcid Bowel: Senakot, Miralax. No BM yet. DVT: SCDs Surgery today with orthopedics. Transfer to floor today. Plan of care discussed with patient at bedside. Case management consulted to assist with discharge planning. Patient will likely need rehabilitation placement. Attending Statement The exam, history, and the medical decision-making described in the above note were completed with the assistance of the mid-level provider. I reviewed and agree with the findings presented. I attest that I had a [id number] encounter with the patient on the same day, and personally performed and documented my assessment and findings in the medical record. Critical care time 35 minutes. Johann Mendoza Nov 21, 2016 16:27 Akil Wang MD Nov 27, 2016 18:52
[2016-11-21] MEDS ORDERED: MIDAZOLAM HCL 2 MG/2 ML VIAL ONE (18:02)
[2016-11-21] MEDS ORDERED: *morphine SULFATE 8 MG/ML PERIprocedure ONLY ONE ×2 (18:02→22:58)
[2016-11-21] MEDS ORDERED: FAMOTIDINE 20 MG/2 ML VIAL ONE (18:03)
[2016-11-21] MEDS ORDERED: VANCOMYCIN HCL 1000 MG VIAL ONE (18:03)
[2016-11-21] MEDS ORDERED: ceFAZolin INJ 1,000 MG VIAL ONE (18:03)
[2016-11-21] MEDS ORDERED: SODIUM CHLOR 0.9% 250 ML INJ 250 ML ONE (18:04)
[2016-11-21] MEDS ORDERED: fentaNYL CITRATE 250 MCG/5 ML AMP ONE ×2 (18:10→23:20)
[2016-11-21] MEDS ORDERED: DEXAMETHASONE SOD PHOS 4 MG/ML VIAL ONE (18:10)
[2016-11-21] MEDS ORDERED: FAMOTIDINE 20 MG/2 ML VIAL IV PUSH ONE (18:30)
[2016-11-21] MEDS ORDERED: MORPHINE SULFATE 8 MG/ML INJ IV PUSH ONE (18:30)
[2016-11-21] MEDS ORDERED: MIDAZOLAM HCL 2 MG/2 ML VIAL IV ONE (18:30)
--- NOTE | 2016-11-21 19:14 | PD.OP ---
cc: David Huerta MD Operative Report Date of Surgery: Nov 21, 2016 Preoperative Diagnosis: Right proximal humerus fracture, right tibia shaft fracture, right tibial plateau fracture Postoperative Diagnosis: Procedure: Open reduction internal fixation right tibia plateau fracture, open reduction internal fixation right tibial shaft fracture, open reduction and fixation right proximal humerus fracture Anesthesia: Gen. Surgeon: David Huerta Shipping And Receiving Operator(s): LINDA Berger PA-C The surgical procedure was assisted by my physician residential real estate assistant. My P.A. presence was necessary throughout this case for the manipulation and positioning of the surgical extremity. My P.A. was assisting me throughout the duration of this procedure. The skill set of a physician residential real estate assistant was medically necessary to complete this procedure. During the surgical case the neurosurgical physician assistant was working at the back table and the physician residential real estate assistant was directly assisting me. Operation and Findings: This patient was seen and evaluated preoperatively. Patient sustained multiple injuries including right tibial plateau fracture, right tibia shaft fracture, and right proximal humerus fracture. Informed consent was obtained preoperatively after detailed discussion of the risks and benefits of surgery. Risk of surgery including bleeding, infection, nonunion, painful hardware, stiffness, loss of motion, arthritis, need for knee replacement, as well as medical complications including blood clots, stroke, heart attack, and were discussed. I also discussed the possibility of using allograft bone graft . Preoperatively the operative site was marked. Patient was brought to the operating room and placed on the operating room table. Intravenous sedation and general endotracheal anesthesia were administered. IV antibiotics were given and a time out procedure was preformed. The right arm and right leg w were prepped with alcohol followed by Hibiclens and draped in the usual sterile fashion. Procedure began with a 4-inch curvilinear incision over the anterolateral knee. Subcutaneous tissue was treated with Bovie. Iliotibial band was split in line with fibers. A sub-meniscal arthrotomy was created and the lateral articular surface was visualized. There was significant comminution and depression of the articular surface. A window was made in the metaphyseal region and bone tamps used to elevate the articular surface. Articular surface reduced into excellent alignment. K-wires were used for provisional fixation. At this point cancellous bone graft was packed under the articular surface using a bone tamp. The cortical fragments were now reduced. Fluoroscopy revealed excellent alignment of fracture. Next attention was turned to the tibial shaft fracture. Traction was applied. Fracture was manipulated. 2 small percutaneous incisions were made around the oblique fracture. A fracture tenaculum was placed around the shaft fracture. Fracture reduced and excellent alignment. Multiplanar fluoroscopy confirmed well aligned fracture. A 3.5 cortical lag screw was now placed from anterior to posterior to compress fracture. A long Synthes proximal tibial plate was selected to use span both the tibial plateau and tibial shaft fractures.. The plate was provisionally held with K-wires. 3.5 cortical screws were used compress plate to bone distally, and a periarticular clamp was used to compress the medial and lateral tibial plateau fracture fragments together. Multiple locking screws were now placed proximally. Additional screws were placed in the shaft. K-wires were removed. Final fluoroscopy showed excellent alignment of fracture with well-placed hardware. The incision was thoroughly irrigated. Arthrotomy and iliotibial band closed with #1 Vicryl,. Subcutaneous tissues closed with 3-0 Vicryl and skin was closed with mel. Sterile dressings were applied. Next attention was turned towards the right shoulder. Procedure began with a 5 inch incision over the anterior shoulder. Cephalic vein was identified. A deltopectoral approach was utilized. The fracture was now visualized. Soft tissue was retracted. A #5 FiberWire suture was placed into the rotator rotator cuff and greater tuberosity. Attention was now turned to reduction. Gentle traction was applied. The humeral shaft was reduced to the humeral head. Fracture was manipulated to achieve excellent reduction. Multiplanar fluoroscopy confirmed well aligned fracture. Multiple K wires were used to hold provisional fixation. A Synthes proximal humerus plate was selected. Plate was provisionally held in place K wires. 3.5 cortical screws were used to compress plate to bone. Fluoroscopy confirmed appropriate plate placement and fracture reduction. Multiple locking screws were now placed in the humeral head. Screws were predrilled and premeasured for appropriate length. Care was taken not to penetrate the articular surface. Additional screws were placed in the humeral shaft. The FiberWire suture was passed through the holes of the plate and sutured to the plate for additional stability. Final fluoroscopy revealed well aligned fracture with well-placed hardware. Wound was thoroughly irrigated. Fascia was closed with #1 Vicryl, subcutaneous tissues closed with 3 -0 Vicryl, and skin was closed with mel. Sterile dressings were applied. Patient was placed into a sling. Patient was awakened and transferred to recovery in stable condition. Needle and sponge counts were correct. David Huerta MD Nov 21, 2016 19:14
[2016-11-21] MEDS ORDERED: MISCELLANEOUS NURSING INFORMATION XX PRN (19:15)
[2016-11-21] MEDS ORDERED: SODIUM CHLORIDE 0.9% FLUSH 5 ML FLUSH IVF PRN (19:15)
[2016-11-21] MEDS ORDERED: Post-op Orders (for Pharmacy) MISC XX ONE (19:15)
[2016-11-21] MEDS ORDERED: diphenhydrAMINE HCL 25 MG CAP PO PRN (19:15)
[2016-11-21] MEDS ORDERED: MISCELLANEOUS PHARMACY INFORMATION XX ONE (19:15)
[2016-11-21] MEDS ORDERED: NALOXONE HCL 0.4 MG/ML AMP IV PRN (19:15)
[2016-11-21] MEDS ORDERED: ACETAMINOPHEN/HYDROcodone 325 MG/10 MG TAB PO PRN (19:15)
[2016-11-21] MEDS ORDERED: GENTAMICIN SULFATE 80 MG/2 ML VIAL XX ONE (19:38)
[2016-11-21] MEDS ORDERED: LACTATED RINGER'S 1000 ML INJ 1,000 ML IV SCH (20:00)
[2016-11-21] MEDS: SODIUM CHLORIDE 0.9% FLUSH 5 ML FLUSH IVF SCH (21:00)
[2016-11-21 21:34] LABS: BLOOD GAS BASE EXCESS 0.7 mmol/L (-2-2); BLOOD GAS CARBOXYHEMOGLOBIN 2.4 % (0-4); BLOOD GAS HCO3 25 mmol/L (22-26); BLOOD GAS METHEMOGLOBIN 1.1 % (0-2); BLOOD GAS O2 HGB SATURATION 96 % (90-100); BLOOD GAS OXYGEN CONTENT 11.9 Vol % (12.0-20.0); BLOOD GAS PCO2 38 mmHg (38-42); BLOOD GAS PO2 175 mmHg (61-120); BLOOD GAS TOTAL HGB 8.5 G/DL (12.0-16.0); CRITICAL VALUE NO; FIO2 59 %; OXYGEN DEVICE O.R. ABG; STAT YES; TEMP CORR TO 98.6
[2016-11-21] MEDS ORDERED: BACITRACIN TOP OINT 15 GM TUBE ONE (21:39)
[2016-11-21 21:46] LABS: AUTOMATED NEUTROPHIL # 4.8 TH/MM3 (1.8-7.7); BASOPHIL % 0.1 % (0.0-2.0); EOSINOPHIL % 0.2 % (0.0-4.0); HEMATOCRIT 21.7 % (35.0-46.0); HEMO FLAGS DIFF FINAL; LYMPH % 4.9 % (9.0-44.0); LYMPHOCYTE # 0.3 TH/MM3 (1.0-4.8); MEAN CORPUSCULAR HEMOGLOBIN 32.5 PG (27.0-34.0); MEAN CORPUSCULAR HGB CONC 35.3 % (32.0-36.0); MONO % 11.3 % (0.0-8.0); NEUT % 83.5 % (16.0-70.0); PLATELET COUNT 103 TH/MM3 (150-450); RED BLOOD COUNT 2.36 MIL/MM3 (4.00-5.30); WHITE BLOOD COUNT 5.7 TH/MM3 (4.0-11.0)
[2016-11-21] MEDS: PCA - TOTAL MG MORPHINE DELIVERED PER SHIFT SCH (22:00)
--- NOTE | 2016-11-21 22:22 | RADRPT ---
EXAM DATE/TIME: 11/21/2016 21:13 [facility] COMPARISON: SHOULDER RIGHT (1VW), November 18, 2016, 17:51. INDICATIONS : ORIF right shoulder. MEDICAL HISTORY : None. SURGICAL HISTORY : None. ENCOUNTER: Subsequent ACUITY: 4 - 6 days PAIN SCORE: Non-responsive. LOCATION: Right upper extremity FINDINGS: Side plate and multiple screws traverse the proximal humerus with excellent anatomical alignment of t he fracture fragments. CONCLUSION: Intact postsurgical changes for technique. Jayshree Patel MD on November 21, 2016 at 22:19 Board Certified Radiologist. This report was verified electronically.
--- NOTE | 2016-11-21 22:25 | RADRPT ---
EXAM DATE/TIME: 11/21/2016 20:46 [facility] COMPARISON: TIBIA/FIBULA RIGHT (AP/LAT), November 18, 2016, 17:51. INDICATIONS : ORIF right tibia. MEDICAL HISTORY : None. SURGICAL HISTORY : None. ENCOUNTER: Subsequent ACUITY: 4 - 6 days PAIN SCORE: Non-responsive. LOCATION: Right tibia FINDINGS: Side plate and multiple screws traverse the tibia with excellent anatomical alignment of the fracture fragments. CONCLUSION: Intact postsurgical changes for technique. Jayshree Patel MD on November 21, 2016 at 22:23 Board Certified Radiologist. This report was verified electronically.
[2016-11-21] MEDS ORDERED: *MEPERIDINE 25 MG INJ VIAL PERIprocedural Use ONLY ONE (22:32)
[2016-11-21] MEDS ORDERED: DO NOT ADM ANY ANTICOAGULANT DRUGS XX PRN (23:00)
[2016-11-21] MEDS: MORPHINE SULFATE 30 MG/30 ML PCA IV SCH (23:14)
[2016-11-21] MEDS ORDERED: MORPHINE SULFATE 4 MG/ML INJ ONE (23:21)
[2016-11-22] VITALS (10 sets, daily range): BP systolic 111–155; BP diastolic 63–70; PULSE 93–115; RESP 11–17; TEMP 98.8–100.7; O2SAT 95–100
[2016-11-22] MEDS: ceFAZolin 2 GM PREMIX 50 ML IV SCH ×3 (01:20→17:15)
[2016-11-22] MEDS: ERGOCALCIFEROL (VIT D2) 50,000 UNIT CAP PO SCH ×2 (01:50→02:32)
[2016-11-22] MEDS: DOCUSATE SODIUM 50 MG/SENNA 8.6 MG TAB PO SCH ×3 (01:50→20:29)
[2016-11-22] MEDS: FAMOTIDINE 20 MG TAB PO SCH ×3 (01:51→20:29)
[2016-11-22] MEDS: ONDANSETRON HCL 4 MG/2 ML VIAL IV PRN (02:06)
[2016-11-22] MEDS: CHLORHEXIDINE GLUCONATE 2 % 1 PACK (2 CLOTHS) TOP SCH (04:00)
[2016-11-22 06:16] LABS: AUTOMATED NEUTROPHIL # 5.6 TH/MM3 (1.8-7.7); BASOPHIL % 0.1 % (0.0-2.0); HEMATOCRIT 22.3 % (35.0-46.0); HEMO FLAGS DIFF FINAL; LYMPH % 5.4 % (9.0-44.0); LYMPHOCYTE # 0.4 TH/MM3 (1.0-4.8); MEAN CELL VOLUME 92.5 FL (80.0-100.0); MEAN CORPUSCULAR HEMOGLOBIN 32.9 PG (27.0-34.0); MEAN CORPUSCULAR HGB CONC 35.6 % (32.0-36.0); MONO % 12.5 % (0.0-8.0); PLATELET COUNT 133 TH/MM3 (150-450); RED BLOOD COUNT 2.42 MIL/MM3 (4.00-5.30); WHITE BLOOD COUNT 6.9 TH/MM3 (4.0-11.0)
[2016-11-22 06:31] LABS: ALKALINE PHOSPHATASE 30 U/L (45-117); TOTAL BILIRUBIN ADULT 0.5 MG/DL (0.2-1.0)
[2016-11-22 06:33] LABS: ALT (GPT) 19 U/L (10-53); ANION GAP 9 MEQ/L (5-15); AST (GOT) 25 U/L (15-37); BICARBONATE 28.5 MEQ/L (21.0-32.0); BLOOD UREA NITROGEN 6 MG/DL (7-18); CHLORIDE 99 MEQ/L (98-107); GLOMERULAR FILTRATION RATE 131 ML/MIN (>89); MAGNESIUM 2.1 MG/DL (1.5-2.5); POTASSIUM 3.6 MEQ/L (3.5-5.1); SODIUM (NA) 136 MEQ/L (136-145)
[2016-11-22] MEDS ORDERED: POTASSIUM PHOSPHATE/SODIUM PHOSPHATE 250 MG TAB PO ONE (06:45)
[2016-11-22] MEDS ORDERED: MAGNESIUM SULFATE 1 GM PREMIX 100 ML IV SCH (07:00)
--- NOTE | 2016-11-22 08:32 | PD.ORT.PN ---
Subjective Subjective Remarks POD 1 s/p ORIF right proximal humerus and right tibial plateau s/p right nonop fibula fx doing well. reports pain. transferred back to [facility] this morning for SVT Objective Vitals Vital Signs Date Time Temp Pulse Resp B/P Pulse Ox O2 Delivery O2 Flow Rate FiO2 11/22/16 08:25 97 Nasal Cannula 2.00 11/22/16 04:27 100.5 114 17 111/63 96 11/21/16 23:49 97.5 94 17 117/56 98 11/21/16 23:15 98.1 86 12 166/84 96 Nasal Cannula 3 11/21/16 23:14 12 11/21/16 23:00 94 10 172/88 96 Nasal Cannula 3 11/21/16 22:45 102 9 170/97 100 Nasal Cannula 3 11/21/16 22:30 98 10 190/96 98 Simple Mask 8 11/21/16 22:27 97.4 114 10 162/67 98 Simple Mask 8 11/21/16 22:00 10 11/21/16 16:00 98.2 84 20 173/75 100 11/21/16 14:00 77 11/21/16 12:00 99.3 75 22 143/80 99 11/21/16 12:00 86 11/21/16 10:00 88 I/O 11/21/16 11/21/16 11/21/16 11/22/16 11/22/16 11/22/16 07:00 15:00 23:00 07:00 15:00 23:00 Intake Total 519 ml 925 ml 2015 ml 1308 ml Output Total 520 ml 850 ml 2100 ml 600 ml Balance -1 ml 75 ml -85 ml 708 ml Intake Oral 0 ml 240 ml 15 ml 900 ml IV Total 519 ml 685 ml 200 ml 408 ml Other 1800 ml Output Urine Total 520 ml 850 ml 475 ml 600 ml Estimated Blood Loss 300 ml Other 1325 ml # Bowel Movements 0 0 Result Diagram: 11/22/16 0557 11/22/16 0557 Imaging Last 24 hours Impressions Pelvis X-Ray 11/18/161748 Signed Impressions: Service Date/Time: Friday, November 18, 2016 17:51 - CONCLUSION: No acute fracture. Pratik Valdovinos MD Maxillofacial CT 11/18/161748 Signed Impressions: Service Date/Time: Friday, November 18, 2016 18:01 - CONCLUSION: 1. Subtle nondisplaced nasal bone fracture. 2. No other facial bone fractures identified. Humberto Christensen MD Head CT 11/18/161748 Signed Impressions: Service Date/Time: Friday, November 18, 2016 18:01 - CONCLUSION: 1. Bilateral scattered subarachnoid hemorrhage. No midline shift or mass effect. 2. Right scalp contusion 3. Bilateral nasal fractures slightly greater on the right. Pratik Valdovinos MD Chest X-Ray 11/18/161748 Signed Impressions: Service Date/Time: Friday, November 18, 2016 17:51 - CONCLUSION: 1. Small right apical pneumothorax. 2. Right proximal humeral fracture. Humberto Christensen MD Chest CT 11/18/161748 Signed Impressions: Service Date/Time: Friday, November 18, 2016 18:08 - CONCLUSION: 1. Small right pneumothorax. 2. Comminuted fracture of the right proximal humerus. 3. Subtle nondisplaced right lateral rib fracture. Humberto Christensen MD Cervical Spine CT 11/18/161748 Signed Impressions: Service Date/Time: Friday, November 18, 2016 18:01 - CONCLUSION: 1. No fracture or subluxation. 2. Upper rib fractures and right apical pneumothorax. Pratik Valdovinos MD Abdomen/Pelvis CT 11/18/161748 Signed Impressions: Service Date/Time: Friday, November 18, 2016 18:08 - CONCLUSION: 1. Tiny right basilar pneumothorax. 2. Low attenuation lesion involving the right lobe of the liver which may represent cysts. 3. Subtle nondisplaced right lower lateral rib fracture. Humberto Christensen MD Objective Remarks RUE: +sling. dressing clean and dry. intact. NVI with good radial nerve function RLE: Dressings clean and dry. intact. +knee brace. noted swelling of fibula with bruising. NVI Assessment & Plan Problem List: (1) Fracture of surgical neck of right humerus (2) Closed fracture of right tibial plateau (3) Fracture of tibial shaft, right, closed Assessment and Plan 1) Right Proximal Humerus fx s/p ORIF - POD 1 2) Right Tibial Plateau fx s/p ORIF - POD 1 3) Right Proximal Tibial Shaft Fx s/p ORIF - POD 1 4) Right Distal Fibula Shaft Fx - nonop -RLE: NWB. no active leg lifts or quad sets. PROM 0-90deg. brace at all times except for therapy. dressing changes POD 2 -RUE: sling at all times. NWB. pendulums. dressing changes POD 2 Ambrosio Quintana Nov 22, 2016 08:32
[2016-11-22] MEDS ORDERED: XARE10TA PO (08:34)
[2016-11-22] MEDS ORDERED: VITA2000 PO (08:34)
[2016-11-22] MEDS ORDERED: CALCTAB19 PO (08:34)
[2016-11-22] MEDS ORDERED: HYDR-3366 PO (08:34)
[2016-11-22] MEDS ORDERED: ERGO1CAP30 PO (08:34)
[2016-11-22] MEDS ORDERED: WHEEMIS3 (08:34)
[2016-11-22] MEDS: POTASSIUM CHLOR 20 MEQ PREMIX 100 ML IV SCH ×2 (08:35→09:00)
[2016-11-22] MEDS: DILTIAZEM-CD 180 MG CAP ER PO SCH (08:35)
[2016-11-22] MEDS: POLYETHYLENE GLYCOL 17 GM PKG PO SCH (08:36)
[2016-11-22] MEDS: CALCIUM/VITAMIN D 250 MG/125 U TAB PO SCH ×3 (08:36→17:54)
[2016-11-22] MEDS: CHOLECALCIFEROL (VIT D3) 1000 UNIT TAB PO SCH (08:36)
[2016-11-22] MEDS: SODIUM CHLORIDE 0.9% FLUSH 5 ML FLUSH IVF SCH ×2 (08:38→20:30)
[2016-11-22] MEDS ORDERED: PNEUMOCOCCAL POLYVALENT INJ 25 MCG/0.5 ML SYR IM ONE (09:00)
[2016-11-22] MEDS ORDERED: INFLUENZA VIRUS VACCINE (QUADRIVALENT) 0.5 ML SYR IM ONE (09:00)
--- NOTE | 2016-11-22 09:19 | EKG ---
Date Performed: 11/22/2016 Time Performed: 05:10:40 PTAGE: 61 years EKG: Sinus tachycardia rSr'(V1) - probable normal variant Possible anterior infarct - age undete rmined Inferior/lateral T wave changes are nonspecific Abnormal ECG PREVIOUS TRACING : 11/19/2016 08.53 DOCTOR: Kareem Layton Interpretating Date/Time 11/22/2016 09:17:39
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
[2016-11-22] MEDS: MORPHINE SULFATE 30 MG/30 ML PCA IV SCH (10:32)
--- NOTE | 2016-11-22 11:11 | RADRPT ---
EXAM DATE/TIME: 11/22/2016 08:15 [facility] COMPARISON: CT THORAX W CONTRAST, November 18, 2016, 18:08. CHEST SINGLE AP, November 19, 2016, 4:48. SHOULDER RIGHT COMPLETE (>2VWS), November 21, 2016, 21:13. INDICATIONS : Trauma. MEDICAL HISTORY : Breast Cancer. SURGICAL HISTORY : Double masectomy. ENCOUNTER: Subsequent ACUITY: 2 days PAIN SCORE: 2/10 LOCATION: Bilateral chest FINDINGS: The heart is at the upper limits of normal in size. There are chronic appearing interstitial changes within the pulmonary parenchyma. There is slight blunting of the costophrenic sulcus bilaterally sugg esting very minimal basilar effusion. There is atelectasis and scarring in the left lung base. These changes are similar to previous. CONCLUSION: 1. Chronic brain changes stable compared to previous exam. 2. Postsurgical changes in the right shoulder. Gerald Gomez MD on November 22, 2016 at 11:08 Board Certified Radiologist. This report was verified electronically.
[2016-11-22] MEDS: ACETAMIN 325 MG/BUTALBITAL 50 MG/CAFFEINE 40 MG TAB PO PRN ×2 (12:33→17:55)
[2016-11-22] MEDS: OXYBUTYNIN CHLORIDE 5 MG TAB PO PRN (12:34)
[2016-11-22] MEDS: PCA - TOTAL MG MORPHINE DELIVERED PER SHIFT SCH ×2 (14:00→22:00)
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
[2016-11-22] MEDS: VANCOMYCIN INJ 1,000 MG in SODIUM CHLOR 0.9% 250 ML INJ 250 ML IV SCH (17:56)
[2016-11-22] MEDS: ENOXAPARIN SODIUM 30 MG/0.3 ML SYRINGE SQ SCH (20:29)
[2016-11-22] MEDS ORDERED: ENOXAPARIN SODIUM 30 MG/0.3 ML SYRINGE SQ SCH (21:00)
[2016-11-22] MEDS: MORPHINE SULFATE 4 MG/ML INJ IV PUSH PRN (21:47)
[2016-11-22] MEDS: HYDROmorphone HCL PF 1 MG/ML VIAL IV PUSH PRN (23:22)
[2016-11-23] VITALS (9 sets, daily range): BP systolic 100–139; BP diastolic 51–59; PULSE 85–102; RESP 14–24; TEMP 98–99.8; O2SAT 97–100
[2016-11-23] MEDS: ceFAZolin 2 GM PREMIX 50 ML IV SCH ×3 (01:00→17:15)
[2016-11-23] MEDS: MORPHINE SULFATE 4 MG/ML INJ IV PUSH PRN ×2 (02:00→10:35)
--- NOTE | 2016-11-23 03:21 | RADRPT ---
EXAM DATE/TIME: 11/23/2016 01:51 [facility] COMPARISON: CHEST SINGLE AP, November 22, 2016, 8:15. INDICATIONS : Short of breath. MEDICAL HISTORY : Carcinoma, breast. SURGICAL HISTORY : Mastectomy, bilateral. ENCOUNTER: Subsequent ACUITY: 3 days PAIN SCORE: Non-responsive. LOCATION: Bilateral chest FINDINGS: Single portable semiupright view of the chest is obtained and demonstrates no significant interval ch ruth. CONCLUSION: No significant change has occurred. Lion Vidal MD on November 23, 2016 at 3:20 Board Certified Radiologist. This report was verified electronically.
[2016-11-23] MEDS: CHLORHEXIDINE GLUCONATE 2 % 1 PACK (2 CLOTHS) TOP SCH (04:00)
[2016-11-23] MEDS: PCA - TOTAL MG MORPHINE DELIVERED PER SHIFT SCH (04:26)
[2016-11-23] MEDS: HYDROmorphone HCL PF 1 MG/ML VIAL IV PUSH PRN ×2 (04:27→23:36)
[2016-11-23 04:30] LABS: MEAN CELL VOLUME 92.7 FL (80.0-100.0); MEAN CORPUSCULAR HEMOGLOBIN 32.7 PG (27.0-34.0); MEAN CORPUSCULAR HGB CONC 35.3 % (32.0-36.0); PLATELET COUNT 146 TH/MM3 (150-450); RED BLOOD COUNT 2.25 MIL/MM3 (4.00-5.30); RED CELL DISTRIBUTION WIDTH 14.1 % (11.6-17.2); WHITE BLOOD COUNT 6.5 TH/MM3 (4.0-11.0)
[2016-11-23 04:38] LABS: REVIEW FLAG FINAL
[2016-11-23 04:39] LABS: HEMATOCRIT 20.8 % (35.0-46.0)
[2016-11-23 04:48] LABS: BICARBONATE 33.9 MEQ/L (21.0-32.0); POTASSIUM 3.2 MEQ/L (3.5-5.1)
[2016-11-23] MEDS: VANCOMYCIN INJ 1,000 MG in SODIUM CHLOR 0.9% 250 ML INJ 250 ML IV SCH (06:19)
--- NOTE | 2016-11-23 08:13 | PD.ORT.PN ---
Subjective Subjective Remarks POD 2 s/p ORIF right proximal humerus and right tibial plateau s/p right nonop fibula fx doing well. reports pain but improving. states foot is swelling. has transfer order to [facility] but bed not available yet. Objective Vitals Vital Signs Date Time Temp Pulse Resp B/P Pulse Ox O2 Delivery O2 Flow Rate FiO2 11/23/16 04:00 99.0 91 21 112/55 99 11/23/16 04:00 91 11/23/16 00:00 94 11/23/16 00:00 99.8 94 14 118/59 100 11/22/16 20:47 98 Nasal Cannula 3.00 11/22/16 20:00 100.7 96 17 114/63 95 11/22/16 20:00 96 11/22/16 20:00 95 Nasal Cannula 3.00 11/22/16 18:00 115 11/22/16 16:00 100.0 104 17 151/70 100 11/22/16 16:00 104 11/22/16 14:00 93 11/22/16 14:00 14 11/22/16 13:33 12 11/22/16 12:00 98.8 96 11 155/66 96 11/22/16 12:00 96 11/22/16 10:32 13 11/22/16 10:00 101 11/22/16 08:25 97 Nasal Cannula 2.00 I/O 11/22/16 11/22/16 11/22/16 11/23/16 11/23/16 11/23/16 07:00 15:00 23:00 07:00 15:00 23:00 Intake Total 1308 ml 1645 ml 1202 ml 395 ml Output Total 600 ml 750 ml 750 ml Balance 708 ml 895 ml 452 ml 395 ml Intake Oral 900 ml 720 ml 850 ml 275 ml IV Total 408 ml 925 ml 352 ml 120 ml Output Urine Total 600 ml 750 ml 750 ml # Voids 1 4 # Bowel Movements 0 0 1 0 Result Diagram: 11/23/1641211/23/16412 Imaging Last 24 hours Impressions Pelvis X-Ray 11/18/161748 Signed Impressions: Service Date/Time: Friday, November 18, 2016 17:51 - CONCLUSION: No acute fracture. Pratik Valdovinos MD Maxillofacial CT 11/18/161748 Signed Impressions: Service Date/Time: Friday, November 18, 2016 18:01 - CONCLUSION: 1. Subtle nondisplaced nasal bone fracture. 2. No other facial bone fractures identified. Humberto Christensen MD Head CT 11/18/161748 Signed Impressions: Service Date/Time: Friday, November 18, 2016 18:01 - CONCLUSION: 1. Bilateral scattered subarachnoid hemorrhage. No midline shift or mass effect. 2. Right scalp contusion 3. Bilateral nasal fractures slightly greater on the right. Pratik Valdovinos MD Chest X-Ray 11/18/161748 Signed Impressions: Service Date/Time: Friday, November 18, 2016 17:51 - CONCLUSION: 1. Small right apical pneumothorax. 2. Right proximal humeral fracture. Humberto Christensen MD Chest CT 11/18/161748 Signed Impressions: Service Date/Time: Friday, November 18, 2016 18:08 - CONCLUSION: 1. Small right pneumothorax. 2. Comminuted fracture of the right proximal humerus. 3. Subtle nondisplaced right lateral rib fracture. Humberto Christensen MD Cervical Spine CT 11/18/161748 Signed Impressions: Service Date/Time: Friday, November 18, 2016 18:01 - CONCLUSION: 1. No fracture or subluxation. 2. Upper rib fractures and right apical pneumothorax. Pratik Valdovinos MD Abdomen/Pelvis CT 11/18/161748 Signed Impressions: Service Date/Time: Friday, November 18, 2016 18:08 - CONCLUSION: 1. Tiny right basilar pneumothorax. 2. Low attenuation lesion involving the right lobe of the liver which may represent cysts. 3. Subtle nondisplaced right lower lateral rib fracture. Humberto Christensen MD Objective Remarks RUE: +sling. dressing clean and dry. intact. NVI with good radial nerve function RLE: Dressings clean and dry. intact. +knee brace. noted swelling of fibula with bruising. NVI. 3+ swelling of foot and ankle with fracture blister noted on anterior ankle. foot plantar flexed. incision visualized. clean and dry. intact. no drainage or erythema Assessment & Plan Problem List: (1) Fracture of surgical neck of right humerus (2) Closed fracture of right tibial plateau (3) Fracture of tibial shaft, right, closed Assessment and Plan 1) Right Proximal Humerus fx s/p ORIF - POD 2 2) Right Tibial Plateau fx s/p ORIF - POD 2 3) Right Proximal Tibial Shaft Fx s/p ORIF - POD 2 4) Right Distal Fibula Shaft Fx - nonop -RLE: NWB. no active leg lifts or quad sets. PROM 0-90deg. brace at all times except for therapy. dressing changes POD 2. will order PODUS boot for ankle. -RUE: sling at all times. NWB. pendulums. dressing changes POD 2 Ambrosio Quintana Nov 23, 2016 08:13
[2016-11-23] MEDS: CHOLECALCIFEROL (VIT D3) 1000 UNIT TAB PO SCH (08:16)
[2016-11-23] MEDS: DOCUSATE SODIUM 50 MG/SENNA 8.6 MG TAB PO SCH ×2 (08:16→20:25)
[2016-11-23] MEDS: CALCIUM/VITAMIN D 250 MG/125 U TAB PO SCH ×3 (08:16→17:53)
[2016-11-23] MEDS: OXYBUTYNIN CHLORIDE 5 MG TAB PO PRN (08:16)
[2016-11-23] MEDS: FAMOTIDINE 20 MG TAB PO SCH ×2 (08:16→20:24)
[2016-11-23] MEDS: DILTIAZEM-CD 180 MG CAP ER PO SCH (08:16)
[2016-11-23] MEDS: SODIUM CHLORIDE 0.9% FLUSH 5 ML FLUSH IVF SCH ×2 (08:17→20:24)
[2016-11-23] MEDS: ENOXAPARIN SODIUM 30 MG/0.3 ML SYRINGE SQ SCH ×2 (08:17→20:24)
[2016-11-23] MEDS: POLYETHYLENE GLYCOL 17 GM PKG PO SCH (08:17)
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
[2016-11-23] MEDS ORDERED: WALKER WHEELS/F1 MIS (09:49)
[2016-11-23] MEDS ORDERED: BEDSIDE COMMODE1 MI1 (09:49)
[2016-11-23] MEDS: ACETAMIN 325 MG/BUTALBITAL 50 MG/CAFFEINE 40 MG TAB PO PRN (10:35)
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
--- NOTE | 2016-11-23 12:21 | HHI.CCPN ---
Subjective Brief History patient with LOC humerus fx and large lacerations face. Some tended in the OR and some to the care of plastic surgery, especially those in eye/face/orbit area. 24 Hour Review/Hospital Course Patient was intubated and ventilated originally and now extubated. She is awake and alert Plastics consult pending 11/22/16 Patients with multiple locomotor injuries including tib-fib fracture and humerus fracture, developed the SVT with a rate of 180 in the middle of the night while on the floor Apparently EKG could not be obtained because there is no EKG machine on the floor and the nurses were not able to tell me what kind of rhythm patient was in therefore it could not be treated successfully until patient was in the better monitoring setting Therefore patient was transferred to ICU and I discussed this with the nurse at night. Patient was apparently in sinus rhythm with heart rate of about 100 Therms that patient has occasional bout of supraventricular tachycardia which is self-limiting and has been going on for years Patient will be transferred back to the floor and should be able to be discharged in a few days when she is more mobile 11/23/16 Patient has been in the ICU for the last 48 hours considering the non-SVT waiting for the bed on a telemetry unit and due to the congestion of patient's was not transferred Yesterday patient was walked with occupational therapy and experienced pain in her left ankle There is indeed small amount of bruising in the medial portion of the left ankle and minimal degree of swelling X-rays obtained patient has a fracture of the distal tibia IE medial malleolus Will inform orthopods about this new finding The most common missed injuries and trauma patient's a dose to distal extremities namely wrists and ankles as well as fingers and toes and these are sometimes discovered indeed later on in the progress of therapy as it is case here Objective Vital Signs Date Time Temp Pulse Resp B/P Pulse Ox O2 Delivery O2 Flow Rate FiO2 11/23/16 10:11 20 11/23/16 08:37 97 Nasal Cannula 2.00 11/23/16 08:00 98.7 85 126/58 Intake and Output 11/22/16 11/22/16 11/23/16 08:00 16:00 00:00 Intake Total 1308 ml 1645 ml 1202 ml Output Total 600 ml 750 ml 750 ml Balance 708 ml 895 ml 452 ml Result Diagram: 11/23/16 0413 11/23/16 0413 Imaging Last 24 hours Impressions Chest X-Ray 11/23/16 0600 Signed Impressions: Service Date/Time: November 01:51 - CONCLUSION: No significant change has occurred. Lion Vidal MD Ankle X-Ray 11/23/16 0000 Signed Impressions: Service Date/Time: November 09:43 - CONCLUSION: 1. Acute nondisplaced fracture involving the medial aspect of the left distal tibia. Bo Castro MD Exam [employer] Awake alert oriented Hemodynamic/Cardiac Hemodynamically stable Pulmonary/Respiratory Bilateral good breath sounds Abdomen/GI Nutrition Abdomen soft Assessment and Plan Attestation Plan Transferred to telemetry for the last 24 hours however no beds are available Patient does not require ICU acutely of care Attempt to get out of the bed result in pain and left ankle and she is now diagnosed with medial left malleolus fracture and orthopedics will be informed about this finding The exam, history, and the medical decision-making described in the above note were completed with the assistance of the mid-level provider. I reviewed and agree with the findings presented. I attest that I had a [id number] encounter with the patient on the same day, and personally performed and documented my assessment and findings in the medical record. Critical care time 40 minutes. Akil Wang MD Nov 23, 2016 12:21
--- NOTE | 2016-11-23 17:42 | HHI.NSPN ---
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 fracture Right greater than left nasal fracture Right scalp laceration Right comminuted lateral tibial plateau fracture Right ankle fracture Attending Statement Continue neuro checks Respiratory. Continue pulmonary toilette, nasotracheal suction, and breathing treatments with nebulizers. Upper extremity humerus fracture. Defer need for surgery to orthopedics. possible surgery today Right greater than left nasal fracture. Consult oromaxillofacial surgeon Cleared by cardiology, Dr Watson. Now on PO Cardizem Right scalp laceration. Consult plastic surgeon Right comminuted lateral tibial plateau fracture. S/P ORIF Right proximal tibial fracture. Deferred treatment to orthopedics Right Ankle Fx. Follow up xrays in AM Daily PT and OT Pneumothorax. Ccontinue to monitor. Multiple rib fractures. Continue narcotic analgesics as needed Nutrition. Oral diet Renal. Continue to monitor closely urine output, BUN and creatinine Endocrine. Continue to Monitor serial Acu checks and SSI for tight control ID continued to monitor for signs of infection Continue Protonix for stress ulcer prophylaxis Continue Vinod ramirez and SCD's for DVT prophylaxis. John Xie MD Nov 23, 2016 17:42
[2016-11-23] MEDS ORDERED: POTASSIUM PHOSPHATE INJ 15 MMOL in SODIUM CHLORIDE 0.9% INJ 150 ML IV ONE (18:15)
[2016-11-23] MEDS ORDERED: DOCUSATE SODIUM 50 MG/SENNA 8.6 MG TAB PO ONE (19:00)
[2016-11-23] MEDS ORDERED: MAGNESIUM HYDROXIDE SUSP 30 ML CUP PO ONE (19:00)
--- NOTE | 2016-11-23 23:19 | HHI.PR ---
Subjective Remarks patient seen this afternoon around 5 pm.says she is feeling all right. Denies any chest pain or shortness of breath. Reports some difficulty being able to urinate, needed straight catheter. She uses Ditropan at home for overactive bladder, has been continued here. Objective Vital Signs Date Time Temp Pulse Resp B/P Pulse Ox O2 Delivery O2 Flow Rate FiO2 11/23/16 20:00 98 11/23/16 20:00 98.6 102 16 139/55 98 11/23/16 19:00 98 Room Air 11/23/16 18:00 101 11/23/16 16:00 98.4 90 14 100/56 97 11/23/16 14:36 20 11/23/16 13:06 96 Room Air 11/23/16 13:04 91 11/23/16 12:00 98.0 98 24 110/51 100 11/23/16 11:40 16 11/23/16 10:50 18 11/23/16 08:37 97 Nasal Cannula 2.00 11/23/16 08:00 98.7 85 14 126/58 99 11/23/16 04:00 99.0 91 21 112/55 99 11/23/16 04:00 91 11/23/16 00:00 94 11/23/16 00:00 99.8 94 14 118/59 100 I/O 11/22/16 11/22/16 11/22/16 11/23/16 11/23/16 11/23/16 07:00 15:00 23:00 07:00 15:00 23:00 Intake Total 1308 ml 1645 ml 1202 ml 395 ml Output Total 600 ml 750 ml 750 ml 450 ml 250 ml Balance 708 ml 895 ml 452 ml 395 ml -450 ml -250 ml Intake Oral 900 ml 720 ml 850 ml 275 ml IV Total 408 ml 925 ml 352 ml 120 ml Output Urine Total 600 ml 750 ml 750 ml 450 ml 250 ml # Voids 1 4 # Bowel Movements 0 0 1 0 Result Diagram: 11/23/1641211/23/16412 Objective Remarks GENERAL: patient sitting up in bed. Appears comfortable. SKIN: Warm and dry. HEAD: Normocephalic. EYES: No scleral icterus. No injection or drainage. bilateral bruising NECK: Supple, trachea midline. No JVD. CARDIOVASCULAR: Regular rate and rhythm without murmurs, gallops, or rubs. RESPIRATORY: Breath sounds equal bilaterally. No accessory muscle use. GASTROINTESTINAL: Abdomen soft, non-tender, nondistended. MUSCULOSKELETAL: No cyanosis, or edema. bilateral legs immobilized. Peripheral profusion intact. BACK: Nontender without obvious deformity. No CVA tenderness. A/P Assessment and Plan 11/23/16 //Urinary retention. exacerbated by pain meds.Stop the oxybutynin. Expect to improve. Monitor. Consult case management for discharge needs. //hypokalemia. Acute. // Hypophosphatemia acute.Potassium and phosphorus replaced. Neuro/Psych: //Bilateral subarachnoid hemorrhage //Right greater than left nasal fracture //Right scalp laceration CT head revealed subarachnoid hemorrhage/scattered with no midline shift. Evaluated by neurosurgery. No indication for intervention at this time. Acetaminophen for fever [place] as needed CV: //SVT - AVNRT? //Rule out possible BCI Initial troponin 0.02. Repeat 0.02 echo with preserved LV function. cardiology: Dr. Olson. signed off. Continue on po cardizem. = Continue to monitor. No further events on telemetry. Resp: //Right basilar/apical pneumothorax- resolved. CT chest revealed small apical and basilar right pneumothoraces. Maintain oxygenation around 98% with nasal cannula. As needed bronchodilator therapy = Respiratory status stable. Continue to monitor. GI: //Left liver cyst regular diet as tolerated. Protonix for GI prophylaxis Colace/as needed Senokot for bowel regimen -We'll need follow-up imaging as outpatient : //Urinary retention. Exacerbated by pain meds. Discontinue Ditropan. -Continue to monitor urine output. catheter for now as necessary. Heme: //History of breast cancer status post bilateral mastectomies //Anemia secondary to acute blood loss. Improved after 2 units. Transfuse as needed for hemoglobin less than 7.0 //Thrombocytopenia. Improved. Avoid anticoagulation for now. //Low fibrinogen on 11/18, however improved by 11/20 after cryoprecipitate. MSK: //Osteoporosis. Continue vitamin D. //Right comminuted lateral plateau fracture //Bilateral lower leg fractures -Management as per orthopedics. Unable to ambulate. rehab placement Prophylaxis -- GI - Protonix - DVT - SCD/pharmacological prophylaxis contraindicated with subarachnoid hemorrhage/acute Discharge Planning Case management consult for rehabilitation placement. Fabrice Lemos MD Nov 23, 2016 23:19 Access - Utilize peripheral IV. Prophylaxis -- GI - Protonix - DVT - SCD/pharmacological prophylaxis contraindicated with subarachnoid hemorrhage/acute Fabrice Lemos MD Nov 23, 2016 23:19
[2016-11-24] VITALS (8 sets, daily range): BP systolic 120–152; BP diastolic 56–77; PULSE 79–100; RESP 12–18; TEMP 97.4–98.4; O2SAT 86–100
[2016-11-24 03:44] LABS: AUTOMATED NEUTROPHIL # 5.3 TH/MM3 (1.8-7.7); BASOPHIL % 0.2 % (0.0-2.0); EOSINOPHIL # 0.1 TH/MM3 (0-0.4); EOSINOPHIL % 0.8 % (0.0-4.0); LYMPH % 9.8 % (9.0-44.0); LYMPHOCYTE # 0.7 TH/MM3 (1.0-4.8); MEAN CELL VOLUME 93.2 FL (80.0-100.0); MEAN CORPUSCULAR HEMOGLOBIN 32.6 PG (27.0-34.0); MONO % 15.1 % (0.0-8.0); NEUT % 74.1 % (16.0-70.0); PLATELET COUNT 153 TH/MM3 (150-450); RED BLOOD COUNT 2.16 MIL/MM3 (4.00-5.30); WHITE BLOOD COUNT 7.1 TH/MM3 (4.0-11.0)
[2016-11-24 03:45] LABS: HEMO FLAGS DIFF FINAL
[2016-11-24 03:49] LABS: HEMATOCRIT 20.1 % (35.0-46.0)
[2016-11-24] MEDS: CHLORHEXIDINE GLUCONATE 2 % 1 PACK (2 CLOTHS) TOP SCH (04:00)
[2016-11-24 04:03] LABS: BICARBONATE 33.8 MEQ/L (21.0-32.0); POTASSIUM 3.3 MEQ/L (3.5-5.1)
--- NOTE | 2016-11-24 07:18 | PD.ORT.PN ---
Subjective Subjective Remarks POD 3 s/p ORIF right proximal humerus and right tibial plateau s/p right nonop fibula fx s/p left nonop medial malleolus fx doing well. reports pain but improving. states foot is swelling. has transfer order to [facility] but bed not available yet. reports issues voiding. has been straight cath'd a few times and has been using bedpan Objective Vitals Vital Signs Date Time Temp Pulse Resp B/P Pulse Ox O2 Delivery O2 Flow Rate FiO2 11/24/16 04:00 88 11/24/16 04:00 98.4 88 14 120/56 96 11/24/16 00:00 98.2 100 15 123/56 97 11/24/16 00:00 100 11/23/16 20:00 98 11/23/16 20:00 98.6 102 16 139/55 98 11/23/16 19:00 98 Room Air 11/23/16 18:00 101 11/23/16 16:00 98.4 90 14 100/56 97 11/23/16 14:36 20 11/23/16 13:06 96 Room Air 11/23/16 13:04 91 11/23/16 12:00 98.0 98 24 110/51 100 11/23/16 11:40 16 11/23/16 10:50 18 11/23/16 08:37 97 Nasal Cannula 2.00 11/23/16 08:00 98.7 85 14 126/58 99 I/O 11/23/16 11/23/16 11/23/16 11/24/16 11/24/16 11/24/16 07:00 15:00 23:00 07:00 15:00 23:00 Intake Total 395 ml 902 ml 360 ml Output Total 450 ml 250 ml Balance 395 ml -450 ml 652 ml 360 ml Intake Oral 275 ml 380 ml 360 ml IV Total 120 ml 522 ml Output Urine Total 450 ml 250 ml # Voids 4 2 3 # Bowel Movements 0 0 0 Result Diagram: 11/24/1631311/24/16313 Imaging Last 24 hours Impressions Pelvis X-Ray 11/18/161748 Signed Impressions: Service Date/Time: Friday, November 18, 2016 17:51 - CONCLUSION: No acute fracture. Pratik Valdovinos MD Maxillofacial CT 11/18/161748 Signed Impressions: Service Date/Time: Friday, November 18, 2016 18:01 - CONCLUSION: 1. Subtle nondisplaced nasal bone fracture. 2. No other facial bone fractures identified. Humberto Christensen MD Head CT 11/18/161748 Signed Impressions: Service Date/Time: Friday, November 18, 2016 18:01 - CONCLUSION: 1. Bilateral scattered subarachnoid hemorrhage. No midline shift or mass effect. 2. Right scalp contusion 3. Bilateral nasal fractures slightly greater on the right. Pratik Valdovinos MD Chest X-Ray 11/18/161748 Signed Impressions: Service Date/Time: Friday, November 18, 2016 17:51 - CONCLUSION: 1. Small right apical pneumothorax. 2. Right proximal humeral fracture. Humberto Christensen MD Chest CT 11/18/161748 Signed Impressions: Service Date/Time: Friday, November 18, 2016 18:08 - CONCLUSION: 1. Small right pneumothorax. 2. Comminuted fracture of the right proximal humerus. 3. Subtle nondisplaced right lateral rib fracture. Humberto Christensen MD Cervical Spine CT 11/18/161748 Signed Impressions: Service Date/Time: Friday, November 18, 2016 18:01 - CONCLUSION: 1. No fracture or subluxation. 2. Upper rib fractures and right apical pneumothorax. Pratik Valdovinos MD Abdomen/Pelvis CT 11/18/161748 Signed Impressions: Service Date/Time: Friday, November 18, 2016 18:08 - CONCLUSION: 1. Tiny right basilar pneumothorax. 2. Low attenuation lesion involving the right lobe of the liver which may represent cysts. 3. Subtle nondisplaced right lower lateral rib fracture. Humberto Christensen MD Objective Remarks RUE: +sling. dressing clean and dry. intact. NVI with good radial nerve function RLE: Dressings clean and dry. intact. +knee brace. noted swelling of fibula with bruising. NVI. 3+ swelling of foot and ankle with fracture blister noted on anterior ankle. foot plantar flexed. incision visualized. clean and dry. intact. no drainage or erythema LLE: +short leg splint. intact Assessment & Plan Problem List: (1) Fracture of surgical neck of right humerus (2) Closed fracture of right tibial plateau (3) Fracture of tibial shaft, right, closed Assessment and Plan 1) Right Proximal Humerus fx s/p ORIF - POD 3 2) Right Tibial Plateau fx s/p ORIF - POD 3 3) Right Proximal Tibial Shaft Fx s/p ORIF - POD 3 4) Right Distal Fibula Shaft Fx - nonop 5) Left Nondisplaced Medial Malleolus Fx - nonop -RLE: NWB. no active leg lifts or quad sets. PROM 0-90deg. brace at all times except for therapy. dressing changes POD 2. will order PODUS boot for ankle. -RUE: sling at all times. NWB. pendulums. dressing changes POD 2 -LLE: NWB. maintain splint at all times Ambrosio Quintana Nov 24, 2016 07:18
[2016-11-24] MEDS ORDERED: ICU - POTASSIUM CHLORIDE/AQUEOUS SOLN 40 MEQ/100 ML IVPB IV PRN (07:30)
[2016-11-24] MEDS ORDERED: ICU - SODIUM PHOSPHATE 30 MMOL/NS 250 ML IV PRN ×2 (07:30)
[2016-11-24] MEDS ORDERED: ICU - MAGNESIUM SULFATE 2 GM/NS 100 ML IV PRN ×2 (07:30)
[2016-11-24] MEDS ORDERED: ICU - POTASSIUM CHLORIDE/AQUEOUS SOLN 20 MEQ/100 ML IVPB IV PRN (07:30)
[2016-11-24] MEDS ORDERED: ICU - MAGNESIUM OXIDE 400 MG TAB PO PRN (07:30)
[2016-11-24] MEDS ORDERED: ICU - CALL ORDERING PHYSICIAN XX PRN (07:30)
[2016-11-24] MEDS ORDERED: ICU - POTASSIUM PHOSPHATE MONOBASIC 500 MG TAB PO PRN (07:30)
[2016-11-24] MEDS ORDERED: ICU - D/C ICU ELECTROLYTE ORDERS XX PRN (07:30)
[2016-11-24] MEDS ORDERED: ICU - MAGNESIUM SULFATE 4 GM/NS 100 ML IV PRN ×2 (07:30)
[2016-11-24] MEDS ORDERED: POTASSIUM CHLORIDE 20 MEQ PWD PACKET PO PRN (07:30)
[2016-11-24] MEDS: POLYETHYLENE GLYCOL 17 GM PKG PO SCH (08:39)
[2016-11-24] MEDS: ENOXAPARIN SODIUM 30 MG/0.3 ML SYRINGE SQ SCH ×2 (08:40→20:43)
[2016-11-24] MEDS: FAMOTIDINE 20 MG TAB PO SCH ×2 (08:41→20:43)
[2016-11-24] MEDS: HYDROmorphone HCL PF 1 MG/ML VIAL IV PUSH PRN (08:41)
[2016-11-24] MEDS: DILTIAZEM-CD 180 MG CAP ER PO SCH (08:41)
[2016-11-24] MEDS: CHOLECALCIFEROL (VIT D3) 1000 UNIT TAB PO SCH (08:41)
[2016-11-24] MEDS: CALCIUM/VITAMIN D 250 MG/125 U TAB PO SCH ×3 (08:42→17:35)
[2016-11-24] MEDS: DOCUSATE SODIUM 50 MG/SENNA 8.6 MG TAB PO SCH ×2 (08:42→20:43)
[2016-11-24] MEDS: SODIUM CHLORIDE 0.9% FLUSH 5 ML FLUSH IVF SCH ×2 (08:42→20:43)
[2016-11-24] MEDS: ICU - POTASSIUM PHOSPHATE 30 MMOL/NS 250 ML IV PRN ×4 (09:57→10:02)
[2016-11-24] MEDS ORDERED: FUROSEMIDE 40 MG/4 ML VIAL IV PUSH ONE (10:00)
--- NOTE | 2016-11-24 11:24 | HHI.CCPN ---
Subjective Brief History patient with LOC humerus fx and large lacerations face. Some tended in the OR and some to the care of plastic surgery, especially those in eye/face/orbit area. 24 Hour Review/Hospital Course Patient was intubated and ventilated originally and now extubated. She is awake and alert Plastics consult pending 11/22/16 Patients with multiple locomotor injuries including tib-fib fracture and humerus fracture, developed the SVT with a rate of 180 in the middle of the night while on the floor Apparently EKG could not be obtained because there is no EKG machine on the floor and the nurses were not able to tell me what kind of rhythm patient was in therefore it could not be treated successfully until patient was in the better monitoring setting Therefore patient was transferred to ICU and I discussed this with the nurse at night. Patient was apparently in sinus rhythm with heart rate of about 100 Therms that patient has occasional bout of supraventricular tachycardia which is self-limiting and has been going on for years Patient will be transferred back to the floor and should be able to be discharged in a few days when she is more mobile 11/23/16 Patient has been in the ICU for the last 48 hours considering the non-SVT waiting for the bed on a telemetry unit and due to the congestion of patient's was not transferred Yesterday patient was walked with occupational therapy and experienced pain in her left ankle There is indeed small amount of bruising in the medial portion of the left ankle and minimal degree of swelling X-rays obtained patient has a fracture of the distal tibia IE medial malleolus Will inform orthopods about this new finding The most common missed injuries and trauma patient's a dose to distal extremities namely wrists and ankles as well as fingers and toes and these are sometimes discovered indeed later on in the progress of therapy as it is case here 11/24/16 Patient doing well at this time Left ankle fracture will be taking care of by conservative means Patient is awake alert and oriented Slightly low hemoglobin to 7.1 g/dL but part of this is hemodilution Patient is hemodynamically stable so there is no compelling reason for transfusion Plan Transfer patient to rehabilitation Center Objective Vital Signs Date Time Temp Pulse Resp B/P Pulse Ox O2 Delivery O2 Flow Rate FiO2 11/24/16 08:00 86 Nasal Cannula 2.00 11/24/16 08:00 97.7 97 18 152/77 3/24/17 07:59 21 Intake and Output 11/23/16 11/23/16 11/24/16 08:00 16:00 00:00 Intake Total 395 ml 902 ml Output Total 450 ml 250 ml Balance 395 ml -450 ml 652 ml Result Diagram: 11/24/16 0314 11/24/16 0314 Assessment and Plan Attestation The exam, history, and the medical decision-making described in the above note were completed with the assistance of the mid-level provider. I reviewed and agree with the findings presented. I attest that I had a [id number] encounter with the patient on the same day, and personally performed and documented my assessment and findings in the medical record. Critical care time 35 minutes. Akil Wang MD Nov 24, 2016 11:24
[2016-11-24] MEDS ORDERED: SENN1TAB PO (11:35)
[2016-11-24] MEDS ORDERED: METH500T3 PO (11:35)
[2016-11-24] MEDS: METHOCARBAMOL 500 MG TAB PO SCH ×2 (12:23→20:48)
[2016-11-24] MEDS ORDERED: POTASSIUM PHOSPHATE INJ 15 MMOL in SODIUM CHLORIDE 0.9% INJ 150 ML IV ONE (13:00)
--- NOTE | 2016-11-24 15:14 | HHI.NSPN ---
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 bone fractures identified. Humberto Christensen MD Head CT 11/18/161748 Signed Impressions: Service Date/Time: Friday, November 18, 2016 18:01 - CONCLUSION: 1. Bilateral scattered subarachnoid hemorrhage. No midline shift or mass effect. 2. Right scalp contusion 3. Bilateral nasal fractures slightly greater on the right. Pratik Valdovinos MD Chest CT 11/18/161748 Signed Impressions: Service Date/Time: Friday, November 18, 2016 18:08 - CONCLUSION: 1. Small right pneumothorax. 2. Comminuted fracture of the right proximal humerus. 3. Subtle nondisplaced right lateral rib fracture. Humberto Christensen MD Cervical Spine CT 11/18/161748 Signed Impressions: Service Date/Time: Friday, November 18, 2016 18:01 - CONCLUSION: 1. No fracture or subluxation. 2. Upper rib fractures and right apical pneumothorax. Pratik Valdovinos MD Abdomen/Pelvis CT 11/18/161748 Signed Impressions: Service Date/Time: Friday, November 18, 2016 18:08 - CONCLUSION: 1. Tiny right basilar pneumothorax. 2. Low attenuation lesion involving the right lobe of the liver which may represent cysts. 3. Subtle nondisplaced right lower lateral rib fracture. Humberto Christensen MD Tibia/Fibula X-Ray 11/18/16 0000 Signed Impressions: Service Date/Time: Friday, November 18, 2016 17:51 - CONCLUSION: 1. Lateral tibial plateau fracture. 2. Fracture of the proximal tibial shaft with mild displacement. 3. Distal fibular fracture with overlapping fragments and slight comminution. Pratik Valdovinos MD Shoulder X-Ray 11/18/16 0000 Signed Impressions: Service Date/Time: Friday, November 18, 2016 17:51 - CONCLUSION: 1. Right proximal humeral fracture. 2. Small right apical pneumothorax. Humberto Christensen MD Lower Extremity CT 11/18/16 0000 Signed Impressions: Service Date/Time: Friday, November 18, 2016 19:08 - CONCLUSION: 1. Lateral tibial plateau fracture, comminuted, extending into the midline and involves the tibial spines. 2. Fracture of the proximal shaft of the tibia with displacement and comminution. 3. Distal femur and patella are intact. Pratik Valdovinos MD Elbow X-Ray 11/18/16 0000 Signed Impressions: Service Date/Time: Friday, November 18, 2016 17:51 - CONCLUSION: No acute fracture. Pratik Valdovinos MD Plan Plan Remarks 61 year old female Scattered subarachnoid hemorrhage right apical and basilar pneumothorax. Left liver cyst Right proximal humeral fracture Right greater than left nasal fracture Right scalp laceration Right comminuted lateral tibial plateau fracture Right ankle fracture Attending Statement Respiratory. Continue pulmonary toilette, nasotracheal suction, and breathing treatments with nebulizers. Upper extremity humerus fracture. S/p ORIF Right greater than left nasal fracture. Consult oromaxillofacial surgeon Cleared by cardiology, Dr Watson. Now on PO Cardizem Right scalp laceration. Defer to plastic surgeon Right comminuted lateral tibial plateau fracture. S/P ORIF Right proximal tibial fracture. Deferred treatment to orthopedics Right Ankle Fx. Follow up xrays in AM Daily PT and OT Pneumothorax. Ccontinue to monitor. Multiple rib fractures. Continue narcotic analgesics as needed Nutrition. Oral diet Renal. Continue to monitor closely urine output, BUN and creatinine Endocrine. Continue to Monitor serial Acu checks and SSI for tight control ID continued to monitor for signs of infection Continue Protonix for stress ulcer prophylaxis Continue Vinod hose and SCD's for DVT prophylaxis. Lovenox Stable per neurosurgial standpoint to transfer to rehab John Louis MD Nov 24, 2016 15:14
[2016-11-24] MEDS ORDERED: CARD180C5 PO (18:08)
--- NOTE | 2016-11-24 18:49 | HHI.PR ---
Subjective Remarks Patient seen today around 2 PM. Eating, wakes up for exam. Says she is feeling all right. Pain is controlled. Velasquez has been placed. Bowel movement yesterday. Objective Vital Signs Date Time Temp Pulse Resp B/P Pulse Ox O2 Delivery O2 Flow Rate FiO2 11/24/16 16:00 83 11/24/16 16:00 97.7 83 16 123/56 100 11/24/16 12:00 81 11/24/16 12:00 97.4 97 17 146/69 100 11/24/16 08:00 86 Nasal Cannula 2.00 11/24/16 08:00 97.7 97 18 152/77 86 11/24/16 08:00 98 11/24/16 07:59 93 21 11/24/16 04:00 88 11/24/16 04:00 98.4 88 14 120/56 96 11/24/16 00:00 98.2 100 15 123/56 97 11/24/16 00:00 100 11/23/16 20:00 98 11/23/16 20:00 98.6 102 16 139/55 98 11/23/16 19:00 98 Room Air I/O 11/23/16 11/23/16 11/23/16 11/24/16 11/24/16 11/24/16 07:00 15:00 23:00 07:00 15:00 23:00 Intake Total 395 ml 902 ml 360 ml 957 ml Output Total 450 ml 250 ml 2950 ml Balance 395 ml -450 ml 652 ml 360 ml -1993 ml Intake Oral 275 ml 380 ml 360 ml 840 ml IV Total 120 ml 522 ml 117 ml Output Urine Total 450 ml 250 ml 2950 ml # Voids 4 2 3 5 # Bowel Movements 0 0 0 Result Diagram: 11/24/164 11/24/164 Objective Remarks GENERAL: patient sitting, wakes up for exam. SKIN: Warm and dry. HEAD: Normocephalic. EYES: No scleral icterus. No injection or drainage. bilateral bruising with no appreciable change. NECK: Supple, trachea midline. No JVD. CARDIOVASCULAR: Regular rate and rhythm without murmurs, gallops, or rubs. RESPIRATORY: Breath sounds equal bilaterally. No accessory muscle use. GASTROINTESTINAL: Abdomen soft, non-tender, nondistended. MUSCULOSKELETAL: No cyanosis, or edema. bilateral legs immobilized. Peripheral profusion intact. BACK: Nontender without obvious deformity. No CVA tenderness. A/P Assessment and Plan 11/24/16 //Urinary retention. Likely exacerbated by pain meds. Hold home Ditropan. Velasquez in place. Can be removed at rehabilitation. //hypokalemia. Again, replaced. // Hypophosphatemia acute.again, replaced. Neuro/Psych: //Bilateral subarachnoid hemorrhage //Right greater than left nasal fracture //Right scalp laceration CT head revealed subarachnoid hemorrhage/scattered with no midline shift. Evaluated by neurosurgery. No indication for intervention at this time. Acetaminophen for fever [place] as needed CV: //SVT - AVNRT? //Rule out possible BCI Initial troponin 0.02. Repeat 0.02 echo with preserved LV function. cardiology: Dr. Olson. signed off. Continue on po cardizem. = Continue to monitor. No further events on telemetry. Continue diltiazem, which has been added to discharge medication list. Resp: //Right basilar/apical pneumothorax- resolved. CT chest revealed small apical and basilar right pneumothoraces. Maintain oxygenation around 98% with nasal cannula. As needed bronchodilator therapy = Respiratory status stable. Continue to monitor. GI: //Incidental Left liver cyst regular diet as tolerated. Protonix for GI prophylaxis Colace/as needed Senokot for bowel regimen -Will need follow-up imaging for incidental liver cyst as outpatient : //Urinary retention. Exacerbated by pain meds. Discontinue Ditropan. -Continue to monitor urine output. Velasquez catheter for now as necessary. Heme: //History of breast cancer status post bilateral mastectomies //Anemia secondary to acute blood loss. Improved after 2 units. Transfuse as needed for hemoglobin less than 7.0 -Repeat CBC tomorrow. //Thrombocytopenia. Improved. Avoid anticoagulation for now. //Low fibrinogen on 11/18, however improved by 11/20 after cryoprecipitate. MSK: //Osteoporosis. Continue vitamin D. //Right comminuted lateral plateau fracture //Bilateral lower leg fractures -Management as per orthopedics. Unable to ambulate. rehab placement Prophylaxis -- GI - Protonix - DVT - SCD/pharmacological prophylaxis contraindicated with subarachnoid hemorrhage/acute Discharge Planning Case management consult for rehabilitation placement. Likely discharge in [place] tomorrow morning. Fabrice Lemos MD Nov 24, 2016 18:49
[2016-11-24] MEDS: ACETAMIN 325 MG/BUTALBITAL 50 MG/CAFFEINE 40 MG TAB PO PRN (20:43)
[2016-11-25] VITALS: BP 161/68; PULSE 76; RESP 24; TEMP 97.7; O2SAT 98
[2016-11-25] MEDS: METHOCARBAMOL 500 MG TAB PO SCH (02:55)
[2016-11-25 04:00] VITALS: BP 163/75; PULSE 89; RESP 20; TEMP 97.7; O2SAT 100
[2016-11-25] MEDS: CHLORHEXIDINE GLUCONATE 2 % 1 PACK (2 CLOTHS) TOP SCH (04:00)
[2016-11-25 05:08] LABS: POTASSIUM 3.3 MEQ/L (3.5-5.1)
--- NOTE | 2016-11-25 07:28 | PD.ORT.PN ---
Subjective Subjective Remarks POD 4 s/p ORIF right proximal humerus and right tibial plateau s/p right nonop fibula fx s/p left nonop medial malleolus fx doing well. reports pain but improving. states foot is swelling. otherwise doing well Objective Vitals Vital Signs Date Time Temp Pulse Resp B/P Pulse Ox O2 Delivery O2 Flow Rate FiO2 11/25/16 04:00 97.7 89 20 163/75 100 11/25/16 04:00 89 11/25/16 00:00 97.7 76 24 161/68 98 11/25/16 00:00 76 11/24/16 20:00 79 11/24/16 20:00 98.1 79 12 126/66 99 11/24/16 20:00 99 Nasal Cannula 2.00 11/24/16 19:00 99 Nasal Cannula 2.00 11/24/16 16:00 83 11/24/16 16:00 97.7 83 16 123/56 100 11/24/16 12:00 81 11/24/16 12:00 97.4 97 17 146/69 100 11/24/16 08:00 86 Nasal Cannula 2.00 11/24/16 08:00 97.7 97 18 152/77 86 11/24/16 08:00 98 11/24/16 07:59 93 21 I/O 11/24/16 11/24/16 11/24/16 11/25/16 11/25/16 11/25/16 07:00 15:00 23:00 07:00 15:00 23:00 Intake Total 360 ml 957 ml 720 ml 480 ml Output Total 2950 ml 1650 ml 950 ml Balance 360 ml -1993 ml -930 ml -470 ml Intake Oral 360 ml 840 ml 720 ml 480 ml IV Total 117 ml Output Urine Total 2950 ml 1650 ml 950 ml # Voids 3 5 # Bowel Movements 0 Result Diagram: 11/24/16 0314 11/25/16 0415 Imaging Last 24 hours Impressions Pelvis X-Ray 11/18/161748 Signed Impressions: Service Date/Time: Friday, November 18, 2016 17:51 - CONCLUSION: No acute fracture. Pratik Valdovinos MD Maxillofacial CT 11/18/161748 Signed Impressions: Service Date/Time: Friday, November 18, 2016 18:01 - CONCLUSION: 1. Subtle nondisplaced nasal bone fracture. 2. No other facial bone fractures identified. Humberto Christensen MD Head CT 11/18/161748 Signed Impressions: Service Date/Time: Friday, November 18, 2016 18:01 - CONCLUSION: 1. Bilateral scattered subarachnoid hemorrhage. No midline shift or mass effect. 2. Right scalp contusion 3. Bilateral nasal fractures slightly greater on the right. Pratik Valdovinos MD Chest X-Ray 11/18/161748 Signed Impressions: Service Date/Time: Friday, November 18, 2016 17:51 - CONCLUSION: 1. Small right apical pneumothorax. 2. Right proximal humeral fracture. Humberto Christensen MD Chest CT 11/18/161748 Signed Impressions: Service Date/Time: Friday, November 18, 2016 18:08 - CONCLUSION: 1. Small right pneumothorax. 2. Comminuted fracture of the right proximal humerus. 3. Subtle nondisplaced right lateral rib fracture. Humberto Christensen MD Cervical Spine CT 11/18/161748 Signed Impressions: Service Date/Time: Friday, November 18, 2016 18:01 - CONCLUSION: 1. No fracture or subluxation. 2. Upper rib fractures and right apical pneumothorax. Pratik Valdovinos MD Abdomen/Pelvis CT 11/18/161748 Signed Impressions: Service Date/Time: Friday, November 18, 2016 18:08 - CONCLUSION: 1. Tiny right basilar pneumothorax. 2. Low attenuation lesion involving the right lobe of the liver which may represent cysts. 3. Subtle nondisplaced right lower lateral rib fracture. Humberto Christensen MD Objective Remarks RUE: +sling. dressing clean and dry. intact. NVI with good radial nerve function RLE: Dressings clean and dry. intact. +knee brace. noted swelling of fibula with bruising. NVI. 3+ swelling of foot and ankle with fracture blister noted on anterior ankle. foot plantar flexed. incision visualized. clean and dry. intact. no drainage or erythema LLE: +short leg splint. intact Assessment & Plan Problem List: (1) Fracture of surgical neck of right humerus (2) Closed fracture of right tibial plateau (3) Fracture of tibial shaft, right, closed Assessment and Plan 1) Right Proximal Humerus fx s/p ORIF - POD 4 2) Right Tibial Plateau fx s/p ORIF - POD 4 3) Right Proximal Tibial Shaft Fx s/p ORIF - POD 4 4) Right Distal Fibula Shaft Fx - nonop 5) Left Nondisplaced Medial Malleolus Fx - nonop -RLE: NWB. no active leg lifts or quad sets. PROM 0-90deg. brace at all times except for therapy. dressing changes. PODUS boot for ankle. -RUE: sling at all times. NWB. pendulums. dressing changes -LLE: NWB. maintain splint at all times -ortho cleared for DC to rehab Ambrosio Quintana Nov 25, 2016 07:28
[2016-11-25] MEDS: DILTIAZEM-CD 180 MG CAP ER PO SCH (07:43)
[2016-11-25] MEDS: CALCIUM/VITAMIN D 250 MG/125 U TAB PO SCH (07:44)
[2016-11-25] MEDS: POLYETHYLENE GLYCOL 17 GM PKG PO SCH (07:44)
[2016-11-25] MEDS: CHOLECALCIFEROL (VIT D3) 1000 UNIT TAB PO SCH (07:44)
[2016-11-25] MEDS: FAMOTIDINE 20 MG TAB PO SCH (07:44)
[2016-11-25] MEDS: SODIUM CHLORIDE 0.9% FLUSH 5 ML FLUSH IVF SCH (07:45)
[2016-11-25] MEDS: ENOXAPARIN SODIUM 30 MG/0.3 ML SYRINGE SQ SCH (07:45)
[2016-11-25 07:57] VITALS: O2SAT 98
[2016-11-25 08:00] VITALS: BP 167/77; PULSE 81; RESP 20; TEMP 98.7; O2SAT 98
[2016-11-25] MEDS ORDERED: FAMO20TA2 PO (09:17)
[2016-11-25] MEDS ORDERED: ENOX30P SQ (09:17)
[2016-11-25] MEDS ORDERED: POTASSIUM CHLORIDE 10 MEQ CONTROLLED RELEASE TAB PO ONE (10:15)
[2016-11-25] MEDS ORDERED: MORPHINE SULFATE 4 MG/ML INJ IV ONE (10:30)
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
[2016-12-08] MEDS ORDERED: BUTATAB6 PO (10:35)
[2016-12-08] MEDS ORDERED: DIPH25CA PO (10:35)
[2016-12-08] MEDS ORDERED: VITA2000 PO (10:35)
[2016-12-08] MEDS ORDERED: SENN1TAB PO (10:35)
[2016-12-08] MEDS ORDERED: FERR325T PO (10:35)
[2016-12-08] MEDS ORDERED: LIDO5DIS35 T-DERMAL (10:35)
[2016-12-08] MEDS ORDERED: ERGO1CAP30 PO (10:35)
[2016-12-08] MEDS ORDERED: ACET325T PO (10:35)
[2016-12-08] MEDS ORDERED: POLY17S PO (10:35)
[2016-12-08] MEDS ORDERED: FAMO20TA2 PO (10:35)
[2016-12-08] MEDS ORDERED: XARE10TA PO (10:35)
[2016-12-08] MEDS ORDERED: OXYC-392 PO (10:35)
[2016-12-08] MEDS ORDERED: CALCTAB19 PO (10:35)
== END 2016-11-25 10:45 | DRG 958 ==
LOC: NEPI 17:39 → NEDA 18:28 → EDBD 18:28 → N03B 21:58 → N05A 11-21 15:36 → N03A 11-22 05:02
PROVIDERS: ADMIT Surgery Trauma Surgery; ATTEND Surgery Trauma Surgery
PROC: 0W9930Z Drainage of Right Pleural Cavity with Drainage Device, Percutaneous Approach (ICD-10-PCS; 2016-11-18)
PROC: 30233M1 Transfusion of Nonautologous Plasma Cryoprecipitate into Peripheral Vein, Percutaneous Approach (ICD-10-PCS; 2016-11-19)
PROC: 30233N1 Transfusion of Nonautologous Red Blood Cells into Peripheral Vein, Percutaneous Approach (ICD-10-PCS; 2016-11-19)
PROC: 0HQ0XZZ Repair Scalp Skin, External Approach (ICD-10-PCS; 2016-11-20)
PROC: 0QSG04Z Reposition Right Tibia with Internal Fixation Device, Open Approach (ICD-10-PCS; principal; 2016-11-21 18:55)
PROC: 0PSC04Z Reposition Right Humeral Head with Internal Fixation Device, Open Approach (ICD-10-PCS; 2016-11-21 18:55)
DX: S82.251A Displaced comminuted fracture of shaft of right tibia, initial encounter for closed fracture (principal); S06.6X9A Traumatic subarachnoid hemorrhage with loss of consciousness of unspecified duration, initial encounter; S27.0XXA Traumatic pneumothorax, initial encounter; D62 Acute posthemorrhagic anemia; D69.6 Thrombocytopenia, unspecified; S22.41XA Multiple fractures of ribs, right side, initial encounter for closed fracture; I47.1 Supraventricular tachycardia; S42.291A Other displaced fracture of upper end of right humerus, initial encounter for closed fracture; E83.39 Other disorders of phosphorus metabolism; S82.141A Displaced bicondylar fracture of right tibia, initial encounter for closed fracture; S82.25 Comminuted fracture of shaft of tibia; S02.2XXA Fracture of nasal bones, initial encounter for closed fracture; S01.01XA Laceration without foreign body of scalp, initial encounter; R40.2410 Glasgow coma scale score 13-15, unspecified time; S82.831A Other fracture of upper and lower end of right fibula, initial encounter for closed fracture; S82.53XA Displaced fracture of medial malleolus of unspecified tibia, initial encounter for closed fracture; S01.81XA Laceration without foreign body of other part of head, initial encounter; K76.89 Other specified diseases of liver; R33.9 Retention of urine, unspecified; M81.0 Age-related osteoporosis without current pathological fracture; E87.6 Hypokalemia; N32.81 Overactive bladder; V28.5XXA Motorcycle passenger injured in noncollision transport accident in traffic accident, initial encounter; Y92.410 Unspecified street and highway as the place of occurrence of the external cause; Z23 Encounter for immunization; Y93.55 Activity, bike riding; Z72.0 Tobacco use; Z85.3 Personal history of malignant neoplasm of breast; Z90.13 Acquired absence of bilateral breasts and nipples
CPT/HCPCS: 29105; 29505; 36430; 70450; 70486; 71010; 71260; 72125; 72170; 73020; 73030; 73070; 73590; 73600; 73700; 74177; 76000; 76937; 80048; 80053; 80069; 82435; 82550; 82552; 82565; 82652; 82805; 82947; 82948; 83735; 84100; 84132; 84155; 84295; 84443; 84484; 84520; 85025; 85027; 85384; 85610; 85730; 86850; 86900; 86901; 86920; 86965; 87641; 90471; 90686; 90715; 90732; 93005; 93306; 94150; 96374; 96375; 99291; C1713; C9113; G0390; J0131; J0153; J0690; J1100; J1170; J1580; J1650; J1940; J2175; J2250; J2270; J2370; J2405; J2710; J3010; J3370; J3475; J3480; J7030; J7050; J7120; L0150; L0172; L1830; P9016; Q2038; Q9967